=== PATIENT | male | born 1965 | race American Indian/Alaskan Native ===

== ENCOUNTER 2016-11-19 10:36 | Emergency (ER) | payer MEDICAID ==
[~2016-11-19] VITALS: Ht 167.6 cm; Wt 74.0 kg
[~2016-11-19 10:36] MED LIST: ASPI-621 PO; ATOR40TA78 PO; CARV6.252 PO; CIPR7.5D RIGHT EAR; LEVO750T26 PO; LISI-170 PO; NITR0.4T SL; SPIR25TA PO; TICA90TA PO
[2016-11-19] MEDS ORDERED: MORPHINE SULFATE 4 MG/ML, 1ML ONE ×2 (11:52→14:31)
[2016-11-19] MEDS ORDERED: ONDANSETRON 2MG/ML, 2ML ONE (11:52)
[2016-11-19] MEDS ORDERED: ONDANSETRON 2MG/ML, 2ML IVPush ONE (12:00)
[2016-11-19] MEDS ORDERED: SODIUM CHLORIDE FLUSH 10ML SYR IVF ONE (12:00)
[2016-11-19] MEDS: MORPHINE SULFATE 4 MG/ML, 1ML IVPush PRN ×2 (12:03→14:35)
[2016-11-19 12:48] VITALS: BP 188/104
== END 2016-11-19 15:06 | disposition home or self-care (01) ==
LOC: ED 15:00
DX: S82.102A Unspecified fracture of upper end of left tibia, initial encounter for closed fracture (principal); I10 Essential (primary) hypertension; I25.2 Old myocardial infarction; W18.39XA Other fall on same level, initial encounter; Y93.89 Activity, other specified; Y92.89 Other specified places as the place of occurrence of the external cause; Y99.8 Other external cause status; Z87.01 Personal history of pneumonia (recurrent)
CPT/HCPCS: 29505; 73564; 73700; 96374; 96375; 96376; 99284; J2405

== ENCOUNTER 2017-02-12 18:12 | Inpatient (IN) | payer MEDICAID ==
[~2017-02-12] VITALS: Ht 167.6 cm; Wt 60.2 kg
[2017-02-12] MEDS ORDERED: SODIUM CHLORIDE 0.9% 1,000 ML IV ONE (18:44)
[2017-02-12] MEDS ORDERED: HYDROmorphone 1 MG/ML, 1ML IVPush PRN (19:00)
[2017-02-12] MEDS ORDERED: ONDANSETRON 2MG/ML, 2ML IVPush ONE (19:00)
[2017-02-12] MEDS ORDERED: SODIUM CHLORIDE FLUSH 10ML SYR IVF ONE (19:00)
[2017-02-12] MEDS ORDERED: ONDANSETRON 2MG/ML, 2ML ONE (19:01)
[2017-02-12] MEDS ORDERED: LABETALOL 5MG/ML, 20ML ONE (19:02)
[2017-02-12] MEDS ORDERED: HYDROmorphone 1 MG/ML, 1ML ONE (19:02)
[2017-02-12] MEDS: LABETALOL 5MG/ML, 20ML IVPush PRN ×3 (19:09→20:43)
[2017-02-12 19:38] LABS: ASPARTATE AMINO TRANSFERASE 38 U/L (15-37); BLOOD UREA NITROGEN 8 mg/dL (7-18)
[2017-02-12 19:48] LABS: IS PT STATUS REG ER OR PRE ER? YES
[2017-02-12] MEDS ORDERED: OMNIPAQUE 350 MG/ML, 75ML BOTTLE ONE (20:22)
[2017-02-12] MEDS ORDERED: AMPICILLIN/SULBACTAM 3 GM in SODIUM CHLORIDE 0.9% 100 ML IVPB ONE (21:30)
[2017-02-12] MEDS ORDERED: SODIUM CHLORIDE FLUSH 10ML SYR IVF PRN (21:30)
[2017-02-12 22:22] VITALS: BP 195/105
[2017-02-12 23:59] VITALS: BP 174/93
[2017-02-13] VITALS (10 sets, daily range): BP systolic 127–199; BP diastolic 74–108
[2017-02-13] MEDS: SODIUM CHLORIDE 0.9% 1,000 ML IV SCH ×3 (00:21→20:21)
[2017-02-13] MEDS ORDERED: ONDANSETRON 2MG/ML, 2ML IVPush PRN ×2 (00:30→22:00)
[2017-02-13] MEDS ORDERED: morphine SULFATE 10 MG/ML, 1ML IVPush PRN (00:30)
[2017-02-13] MEDS ORDERED: POLYETHYLENE GLYCOL 17 GM PACKET PO PRN (00:30)
[2017-02-13] MEDS ORDERED: BISACODYL 10 MG SUPP PR PRN (00:30)
[2017-02-13] MEDS ORDERED: OXYcodone IR 5MG TABLET PO PRN (00:30)
[2017-02-13] MEDS ORDERED: ACETAMINOPHEN 325 MG TABLET PO PRN (00:30)
[2017-02-13] MEDS ORDERED: POTASSIUM CHLORIDE 40 MEQ in SODIUM CHLORIDE 0.9% 500 ML IV ONE (01:00)
[2017-02-13] MEDS ORDERED: NITROGLYCERIN 0.4 MG BOTTLE (25 TABS) SL PRN (01:00)
[2017-02-13] MEDS: HEPARIN 5,000 UNITS/ML, 1ML SQ SCH ×2 (01:35→08:58)
[2017-02-13] MEDS: ENALAPRILAT 1.25 MG/ML, 2ML IVPush PRN (01:47)
[2017-02-13] MEDS: hydrALAzine 20 MG/ML, 1ML IVPush PRN (03:18)
[2017-02-13] MEDS: AMPICILLIN/SULBACTAM 3 GM in SODIUM CHLORIDE 0.9% 100 ML IV SCH ×3 (04:12→18:31)
[2017-02-13] MEDS: CARVEDILOL 25 MG TABLET PO SCH ×2 (06:12→17:56)
[2017-02-13 06:40] LABS: PATH.CAST-FLAG NOT PRESENT; SPERM-FLAG NOT PRESENT; SRC-FLAG NOT PRESENT; XTAL-FLAG NOT PRESENT; YLC-FLAG NOT PRESENT
[2017-02-13] MEDS: ASPIRIN 81 MG TABLET EC PO SCH (08:58)
[2017-02-13] MEDS: SENNA/DOCUSATE TABLET PO SCH (08:58)
[2017-02-13] MEDS: LISINOPRIL 20 MG TABLET PO SCH ×2 (08:58→20:52)
[2017-02-13] MEDS ORDERED: TICAGRELOR 90 MG TABLET PO SCH (09:00)
[2017-02-13] MEDS ORDERED: CEFAZOLIN 1,000 MG ONE (10:11)
[2017-02-13] MEDS ORDERED: PROPOFOL 10 MG/ML, 20ML ONE (10:11)
[2017-02-13] MEDS ORDERED: SUCCINYLCHOLINE 20 MG/ML, 10ML ONE (10:11)
[2017-02-13] MEDS ORDERED: LIDOCAINE 0.5%-EPI 1:200K, 50ML ONE (18:27)
[2017-02-13] MEDS ORDERED: BUPIVACAINE/PF-EPI 0.5% 1:200K ONE (18:27)
[2017-02-13] MEDS: ATORVASTATIN 40 MG TABLET PO SCH (20:52)
[2017-02-13] MEDS ORDERED: MIDAZOLAM 1 MG/ML, 2ML ONE (21:17)
[2017-02-13] MEDS ORDERED: FENTANYL PF 250 MCG/5ML ONE (21:17)
[2017-02-13] MEDS ORDERED: LIDOCAINE 0.5%-EPI 1:200K, 50ML IM ONE (21:35)
[2017-02-13] MEDS ORDERED: MEPERIDINE/PF 25MG/0.5ML IVPush PRN (22:00)
[2017-02-13] MEDS ORDERED: OXYcodone 5 MG/5 ML ORAL.SOL UDC PO PRN (22:00)
[2017-02-13] MEDS ORDERED: LABETALOL 5MG/ML, 20ML IV PRN (22:00)
[2017-02-13] MEDS ORDERED: KETOROLAC 30 MG/1 ML IM PRN (22:00)
[2017-02-13] MEDS ORDERED: FENTANYL PF 100 MCG/2ML IV PRN (22:00)
[2017-02-13] MEDS ORDERED: HYDROmorphone 1 MG/ML, 1ML ONE (22:03)
[2017-02-13] MEDS ORDERED: FENTANYL PF 100 MCG/2ML ONE (22:03)
[2017-02-13] MEDS ORDERED: KETOROLAC 30 MG/1 ML ONE (22:07)
[2017-02-13] MEDS: HYDROmorphone 1 MG/ML, 1ML IV PRN ×2 (22:24→22:49)
[2017-02-13] MEDS ORDERED: hydrALAzine 20 MG/ML, 1ML ONE (22:29)
[2017-02-14] VITALS (13 sets, daily range): BP systolic 124–192; BP diastolic 71–104
[2017-02-14] MEDS: CARVEDILOL 25 MG TABLET PO SCH ×2 (05:19→16:59)
[2017-02-14] MEDS: AMPICILLIN/SULBACTAM 3 GM in SODIUM CHLORIDE 0.9% 100 ML IV SCH ×4 (05:54→18:07)
[2017-02-14 05:57] LABS: ASPARTATE AMINO TRANSFERASE 26 U/L (15-37); BLOOD UREA NITROGEN 16 mg/dL (7-18)
[2017-02-14] MEDS: CHLORHEXIDINE MOUTHWASH 15 ML UDC MM SCH ×2 (08:45→21:44)
[2017-02-14] MEDS: LISINOPRIL 20 MG TABLET PO SCH ×2 (08:45→21:44)
[2017-02-14] MEDS: SENNA/DOCUSATE TABLET PO SCH (08:46)
[2017-02-14] MEDS: ASPIRIN 81 MG TABLET EC PO SCH (09:00)
[2017-02-14] MEDS: HEPARIN 5,000 UNITS/ML, 1ML SQ SCH (16:58)
[2017-02-14] MEDS ORDERED: MORPHINE SULFATE 4 MG/ML, 1ML ONE (20:03)
[2017-02-14] MEDS: hydrALAzine 20 MG/ML, 1ML IVPush PRN (21:41)
[2017-02-14] MEDS: TICAGRELOR 90 MG TABLET PO SCH (21:44)
[2017-02-14] MEDS: ATORVASTATIN 40 MG TABLET PO SCH (21:44)
[2017-02-14] MEDS: ENALAPRILAT 1.25 MG/ML, 2ML IVPush PRN (22:52)
[2017-02-15] MEDS: HEPARIN 5,000 UNITS/ML, 1ML SQ SCH ×2 (00:18→08:24)
[2017-02-15] MEDS: AMPICILLIN/SULBACTAM 3 GM in SODIUM CHLORIDE 0.9% 100 ML IV SCH ×2 (00:19→06:09)
[2017-02-15] MEDS ORDERED: hydrALAzine 20 MG/ML, 1ML IVPush PRN (00:30)
[2017-02-15 01:49] VITALS: BP 186/86
[2017-02-15 02:22] VITALS: BP_SYST 171; BP_SYST 179; BP_DIAS 79; BP_DIAS 83
[2017-02-15 03:00] VITALS: BP 194/99
[2017-02-15 04:30] VITALS: BP 149/69
[2017-02-15 06:05] VITALS: BP 174/89
[2017-02-15] MEDS: CARVEDILOL 25 MG TABLET PO SCH (06:09)
[2017-02-15] MEDS: ENALAPRILAT 1.25 MG/ML, 2ML IVPush PRN (06:09)
[2017-02-15] MEDS: TICAGRELOR 90 MG TABLET PO SCH (08:24)
[2017-02-15] MEDS: CHLORHEXIDINE MOUTHWASH 15 ML UDC MM SCH (08:24)
[2017-02-15] MEDS: SENNA/DOCUSATE TABLET PO SCH (08:25)
[2017-02-15] MEDS: ASPIRIN 81 MG TABLET EC PO SCH (08:25)
[2017-02-15] MEDS ORDERED: OXYC5TAB3 PO (08:53)
[2017-02-15] MEDS ORDERED: AMOX1TAB64 PO (08:53)
[2017-02-15] MEDS ORDERED: LISI-167 PO (08:53)
[2017-02-15] MEDS ORDERED: HYDR-3343 PO (08:53)
[2017-02-15] MEDS ORDERED: LISINOPRIL 10 MG TABLET PO SCH (09:00)
[2017-02-15 10:33] VITALS: BP 123/69
== END 2017-02-15 11:15 | disposition home or self-care (01) | DRG 305 ==
LOC: ED 21:13 → EDIP 21:14 → ED 21:24 → 4EST 22:23 → DCLOUNGE 02-15 10:55
PROVIDERS: ADMIT Internal Medicine; ATTEND Internal Medicine
PROC: 0CDWXZ0 Extraction of Upper Tooth, Single, External Approach (ICD-10-PCS; 2017-02-13)
PROC: 0C9W0Z1 Drainage of Upper Tooth, Open Approach, Multiple (ICD-10-PCS; principal; 2017-02-13 21:00)
DX: I16.0 Hypertensive urgency (principal); K04.7 Periapical abscess without sinus; E87.6 Hypokalemia; I25.10 Atherosclerotic heart disease of native coronary artery without angina pectoris; I11.0 Hypertensive heart disease with heart failure; I50.9 Heart failure, unspecified; B18.2 Chronic viral hepatitis C; E78.5 Hyperlipidemia, unspecified; F17.210 Nicotine dependence, cigarettes, uncomplicated; Z95.5 Presence of coronary angioplasty implant and graft; Z86.73 Personal history of transient ischemic attack (TIA), and cerebral infarction without residual deficits; Z79.82 Long term (current) use of aspirin; Z79.899 Other long term (current) drug therapy; Z83.3 Family history of diabetes mellitus; Z82.49 Family history of ischemic heart disease and other diseases of the circulatory system; Z71.6 Tobacco abuse counseling
CPT/HCPCS: 36415; 70100; 70450; 70487; 71010; 80053; 81001; 83036; 83605; 83735; 84439; 84443; 84484; 85025; 85610; 85730; 87040; 93005; 96361; 96374; 96375; 96376; J0295; J0690; J1170; J1644; J1885; J2250; J2405; J2704; J3010; J3480; Q9967; J0330; J0360; J2270; J7030; J7040

== ENCOUNTER 2017-11-06 12:47 | Inpatient (IN) | payer MEDICAID ==
[~2017-11-06] VITALS: Ht 167.6 cm; Wt 74.8 kg
[2017-11-06 09:40] VITALS: BP 126/74
[~2017-11-06 12:47] MED LIST changes: +AMOX1TAB64 PO; +HYDR-3343 PO; +LISI-167 PO; +OXYC5TAB3 PO
[2017-11-06 13:58] LABS: BASOPHILS # (AUTO) 0.05 x10^3/uL (0-0.1); BASOPHILS % (AUTO) 1 % (0-1); EOSINOPHILS # (AUTO) 0.12 x10^3/uL (0-0.4); EOSINOPHILS % (AUTO) 2 % (1-7); LYMPHOCYTES # (AUTO) 1.03 x10^3/uL (1-3.4); LYMPHOCYTES % (AUTO) 16 % (22-44); MD NO; MEAN CORPUSCULAR HEMOGLOBIN 28.9 pg (27.5-34.5); MEAN CORPUSCULAR HGB CONC 33.8 g/dL (33.2-36.2); MEAN CORPUSCULAR VOLUME 85.5 fL (81-97); MEAN PLATELET VOLUME 8.7 fL (7.4-10.4); MONOCYTES # (AUTO) 0.55 x10^3/uL (0.2-0.8); MONOCYTES % (AUTO) 9 % (2-9); NEUTROPHILS # (AUTO) 4.67 x10^3/uL (1.8-6.8); NEUTROPHILS % (AUTO) 73 % (42-75); PLATELET COUNT 143 x10^3/uL (130-400); RED BLOOD COUNT 5.44 x10^6/uL (4.38-5.82); RED CELL DISTRIBUTION WIDTH 15.5 % (9.4-14.8)
[2017-11-06] MEDS ORDERED: LABETALOL 5MG/ML, 20ML IVPush ONE (14:00)
[2017-11-06 14:09] LABS: ALANINE AMINOTRANSFERASE 41 U/L (12-78); ALBUMIN 3.2 g/dL (3.4-5.0); ANION GAP 9 mmol/L (5-15); CALCIUM 8.3 mg/dL (8.5-10.1); CHLORIDE 104 mmol/L (98-107); CREATININE 1.32 mg/dL (0.7-1.3)
[2017-11-06 14:13] LABS: ALKALINE PHOSPHATASE 123 U/L (45-117); BILIRUBIN,TOTAL 1.1 mg/dL (0.2-1.0); TOTAL PROTEIN 7.7 g/dL (6.4-8.2); TROPONIN I 0.055 ng/mL (0.000-0.045)
[2017-11-06] MEDS ORDERED: LABETALOL 5MG/ML, 20ML ONE (14:20)
[2017-11-06] MEDS ORDERED: ENALAPRILAT 1.25 MG/ML, 2ML IV ONE (15:00)
[2017-11-06] MEDS ORDERED: ENALAPRILAT 1.25 MG/ML, 2ML ONE (15:21)
[2017-11-06] MEDS ORDERED: LISI-167 PO (15:31)
[2017-11-06] MEDS ORDERED: CARV6.2512 PO (15:32)
[2017-11-06] MEDS ORDERED: hydrALAzine 20 MG/ML, 1ML IVPush PRN ×2 (16:00→20:00)
[2017-11-06] MEDS ORDERED: ACETAMINOPHEN 325 MG TABLET PO PRN (16:00)
[2017-11-06] MEDS ORDERED: LABETALOL 5MG/ML, 20ML IVPush PRN ×2 (16:00→20:00)
[2017-11-06] MEDS ORDERED: POTASSIUM CHLORIDE 20 MEQ TAB.ER.PRT ONE (16:24)
[2017-11-06] MEDS ORDERED: ENOXAPARIN 40 MG/0.4 ML ONE (16:24)
[2017-11-06] MEDS ORDERED: POTASSIUM CHLORIDE 20 MEQ TAB.ER.PRT PO ONE (16:30)
[2017-11-06] MEDS ORDERED: NICOTINE 14MG/24 HR PATCH.TD24 ONE (16:52)
[2017-11-06] MEDS ORDERED: LORATADINE 10 MG TABLET PO PRN (17:00)
[2017-11-06] MEDS ORDERED: NICOTINE 14MG/24 HR PATCH.TD24 TD ONE (17:00)
[2017-11-06] MEDS: ENOXAPARIN 40 MG/0.4 ML SQ SCH (17:03)
[2017-11-06 18:01] VITALS: BP 173/99
[2017-11-06 19:53] VITALS: BP 180/106
[2017-11-06] MEDS: TICAGRELOR 90 MG TABLET PO SCH (20:04)
[2017-11-06] MEDS: CARVEDILOL 6.25 MG TABLET PO SCH (20:05)
[2017-11-06] MEDS: LISINOPRIL 10 MG TABLET PO SCH (20:05)
[2017-11-06] MEDS ORDERED: TICAGRELOR 90 MG TABLET PO SCH (21:00)
[2017-11-06 21:07] VITALS: BP 173/97
[2017-11-07 00:56] VITALS: BP 161/103
[2017-11-07 00:56] LABS: BASOPHILS # (AUTO) 0.03 x10^3/uL (0-0.1); BASOPHILS % (AUTO) 1 % (0-1); EOSINOPHILS # (AUTO) 0.28 x10^3/uL (0-0.4); EOSINOPHILS % (AUTO) 5 % (1-7); LYMPHOCYTES # (AUTO) 1.57 x10^3/uL (1-3.4); LYMPHOCYTES % (AUTO) 28 % (22-44); MD NO; MEAN CORPUSCULAR HEMOGLOBIN 29.3 pg (27.5-34.5); MEAN CORPUSCULAR HGB CONC 33.9 g/dL (33.2-36.2); MEAN CORPUSCULAR VOLUME 86.3 fL (81-97); MEAN PLATELET VOLUME 8.6 fL (7.4-10.4); MONOCYTES # (AUTO) 0.58 x10^3/uL (0.2-0.8); MONOCYTES % (AUTO) 10 % (2-9); NEUTROPHILS # (AUTO) 3.15 x10^3/uL (1.8-6.8); NEUTROPHILS % (AUTO) 56 % (42-75); PLATELET COUNT 132 x10^3/uL (130-400); RED BLOOD COUNT 5.13 x10^6/uL (4.38-5.82); RED CELL DISTRIBUTION WIDTH 15.6 % (9.4-14.8)
[2017-11-07 01:12] LABS: TROPONIN I 0.057 ng/mL (0.000-0.045)
[2017-11-07 01:22] LABS: ALBUMIN 2.8 g/dL (3.4-5.0); ANION GAP 9 mmol/L (5-15); CALCIUM 8.1 mg/dL (8.5-10.1); CHLORIDE 107 mmol/L (98-107)
[2017-11-07 01:31] LABS: ALANINE AMINOTRANSFERASE 35 U/L (12-78); ALKALINE PHOSPHATASE 115 U/L (45-117); BILIRUBIN,TOTAL 0.8 mg/dL (0.2-1.0); CHOL/HDL RATIO 5.7; CHOLESTEROL, TOTAL 160 mg/dL (140-239); CREATININE 1.25 mg/dL (0.7-1.3); HDL CHOL % 18 % (26-37); HDL CHOLESTEROL (DIRECT) 28 mg/dL (40-60); TOTAL PROTEIN 6.8 g/dL (6.4-8.2); TRIGLYCERIDES 112 mg/dL (50-200); VLDL CHOLESTEROL 22 mg/dL (0-25)
[2017-11-07 01:32] LABS: FREE T4 (FREE THYROXINE) 1.22 ng/dL (0.76-1.46); LDL CHOLESTEROL,CALCULATED 110 mg/dL (54-169); LDL/HDL RATIO 3.9 (0.5-3.0); THYROID STIMULATING HORMONE 0.494 mIU/L (0.358-3.740)
[2017-11-07 01:41] LABS: AMPHETAMINE SCREEN, URINE Positive (Negative); BARBITURATE SCREEN, URINE Negative (Negative); BENZODIAZEPINE SCREEN, URINE Negative (Negative); CANNABINOID SCREEN, URINE Positive (Negative); COCAINE SCREEN, URINE Negative (Negative); METHADONE SCREEN, URINE Negative (Negative); OPIATE SCREEN, URINE Negative (Negative)
[2017-11-07] MEDS: ASPIRIN 81 MG TABLET EC PO SCH (05:41)
[2017-11-07 06:42] VITALS: BP 162/109
[2017-11-07] MEDS: LISINOPRIL 10 MG TABLET PO SCH ×2 (08:19→20:06)
[2017-11-07] MEDS: TICAGRELOR 90 MG TABLET PO SCH ×2 (08:19→20:06)
[2017-11-07] MEDS: CARVEDILOL 6.25 MG TABLET PO SCH ×2 (08:19→20:06)
[2017-11-07] MEDS ORDERED: CARVEDILOL 6.25 MG TABLET PO SCH (09:00)
[2017-11-07 09:40] VITALS: BP 126/74
[2017-11-07] MEDS ORDERED: BISACODYL 5 MG EC TABLET PO PRN (14:00)
[2017-11-07 14:49] VITALS: BP 163/97
[2017-11-07] MEDS: ENOXAPARIN 40 MG/0.4 ML SQ SCH (17:24)
[2017-11-07] MEDS: ISOSORBIDE DINITRATE 10 MG TABLET PO SCH ×2 (17:24→20:06)
[2017-11-07 20:00] VITALS: BP 128/77
[2017-11-07 20:04] VITALS: BP 155/81
[2017-11-08 03:14] VITALS: BP 174/92
[2017-11-08 04:03] VITALS: BP 159/71
[2017-11-08 05:21] LABS: CHLORIDE 109 mmol/L (98-107)
[2017-11-08 05:30] LABS: ANION GAP 6 mmol/L (5-15); CALCIUM 8.2 mg/dL (8.5-10.1); CREATININE 1.26 mg/dL (0.7-1.3)
[2017-11-08] MEDS: ASPIRIN 81 MG TABLET EC PO SCH (05:55)
[2017-11-08 07:57] VITALS: BP 170/95
[2017-11-08] MEDS: CARVEDILOL 6.25 MG TABLET PO SCH (08:54)
[2017-11-08] MEDS: LISINOPRIL 10 MG TABLET PO SCH (08:55)
[2017-11-08] MEDS: TICAGRELOR 90 MG TABLET PO SCH (08:55)
[2017-11-08] MEDS: ISOSORBIDE DINITRATE 10 MG TABLET PO SCH (08:55)
[2017-11-08] MEDS ORDERED: ISOS10TA2 PO (11:40)
[2017-11-08] MEDS ORDERED: HYDR-3341 PO (11:40)
[2017-11-08] MEDS ORDERED: ATOR40TA78 PO (11:46)
== END 2017-11-08 13:31 | disposition home or self-care (01) | DRG 304 ==
LOC: ED 14:50 → EDIP 14:51 → ED 14:52 → 4EST 16:21 → DCLOUNGE 11-08 13:19
PROVIDERS: ADMIT Family Medicine; ATTEND Family Medicine
DX: I16.9 Hypertensive crisis, unspecified (principal); N17.0 Acute kidney failure with tubular necrosis; I50.32 Chronic diastolic (congestive) heart failure; I13.0 Hypertensive heart and chronic kidney disease with heart failure and stage 1 through stage 4 chronic kidney disease, or unspecified chronic kidney disease; B19.20 Unspecified viral hepatitis C without hepatic coma; E03.9 Hypothyroidism, unspecified; E78.5 Hyperlipidemia, unspecified; E87.6 Hypokalemia; J44.9 Chronic obstructive pulmonary disease, unspecified; F12.10 Cannabis abuse, uncomplicated; F15.10 Other stimulant abuse, uncomplicated; F17.210 Nicotine dependence, cigarettes, uncomplicated; G47.00 Insomnia, unspecified; I25.10 Atherosclerotic heart disease of native coronary artery without angina pectoris; I25.2 Old myocardial infarction; Z79.82 Long term (current) use of aspirin; Z82.49 Family history of ischemic heart disease and other diseases of the circulatory system; Z86.73 Personal history of transient ischemic attack (TIA), and cerebral infarction without residual deficits; Z95.5 Presence of coronary angioplasty implant and graft; Z71.6 Tobacco abuse counseling; Z89.029 Acquired absence of unspecified finger(s)
CPT/HCPCS: 36415; 70450; 71045; 80048; 80053; 80061; 80307; 83735; 83880; 84439; 84443; 84484; 85025; 93005; 93306; 96374; 96375; J1650; J0360

== ENCOUNTER 2018-11-13 19:24 | Inpatient (IN) | payer MEDICAID ==
[~2018-11-13] VITALS: Ht 167.6 cm; Wt 66.5 kg
[~2018-11-13 19:24] MED LIST changes: -ASPI-621 PO; +ASPI81TA45 PO; +CARV6.2512 PO; +HYDR-3341 PO; +ISOS10TA2 PO
[2018-11-13] MEDS ORDERED: hydrALAzine 20 MG/ML, 1ML IV ONE ×2 (20:00→20:30)
--- NOTE | 2018-11-13 20:00 | NUR ---
FIRST CONTACT WITH PT. PT C/O DIFFICULTY BREATHING/SOB X 3 DAYS WITH COUGH. BILAT FOOT SWELLING AND RASH NOTED . PAIN IN LEFT CHEST STARTED X 3 DAYS AGO. PT HAS HX OF TIA/PNEUMONIA. ALL MONITORS IN PLACE. CALL LIGHT WITHIN REACH. NSR ON CONTINUUM OF CARE MANAGER WITHOUT ECTOPY RATE 90'S AT THIS TIME.
[2018-11-13] MEDS ORDERED: hydrALAzine 20 MG/ML, 1ML ONE (20:05)
[2018-11-13] MEDS ORDERED: MORPHINE SULFATE 4 MG/ML, 1ML ONE ×2 (20:05→20:55)
[2018-11-13] MEDS: MORPHINE SULFATE 4 MG/ML, 1ML IVPush PRN ×2 (20:18→20:57)
--- NOTE | 2018-11-13 20:21 | NUR ---
pt medicated per emar. pt tolerated well.
[2018-11-13] MEDS ORDERED: NITROGLYCERIN SINGLE TAB 0.4 MG SL ONE ×2 (20:24→20:54)
[2018-11-13] MEDS: NITROGLYCERIN SINGLE TAB 0.4 MG SL PRN ×2 (20:25→20:57)
--- NOTE | 2018-11-13 20:29 | NUR ---
pt medicated per emar. pt tolerated well. pt's aox4. resps even and unlabored. family at bedside now.
[2018-11-13 20:30] LABS: BASOPHILS # (AUTO) 0.03 x10^3/uL (0-0.1); BASOPHILS % (AUTO) 0 % (0-1); EOSINOPHILS # (AUTO) 0.47 x10^3/uL (0-0.4); EOSINOPHILS % (AUTO) 6 % (1-7); LYMPHOCYTES # (AUTO) 1.35 x10^3/uL (1-3.4); LYMPHOCYTES % (AUTO) 18 % (22-44); MD NO; MEAN CORPUSCULAR HEMOGLOBIN 27.7 pg (27.5-34.5); MEAN CORPUSCULAR HGB CONC 32.2 g/dL (33.2-36.2); MEAN CORPUSCULAR VOLUME 86.1 fL (81-97); MEAN PLATELET VOLUME 9.1 fL (7.4-10.4); MONOCYTES # (AUTO) 0.54 x10^3/uL (0.2-0.8); MONOCYTES % (AUTO) 7 % (2-9); NEUTROPHILS # (AUTO) 5.34 x10^3/uL (1.8-6.8); NEUTROPHILS % (AUTO) 69 % (42-75); PLATELET COUNT 202 x10^3/uL (130-400); RED BLOOD COUNT 5.26 x10^6/uL (4.38-5.82); RED CELL DISTRIBUTION WIDTH 16.1 % (9.4-14.8)
[2018-11-13 20:35] LABS: INTERNATIONAL NORMALIZED RATIO 1.14 (0.93-1.1); PROTHROMBIN TIME 11.9 Seconds (9.6-11.5)
[2018-11-13 20:36] LABS: ALANINE AMINOTRANSFERASE 31 U/L (12-78); ALBUMIN 3.1 g/dL (3.4-5.0); ANION GAP 5 mmol/L (5-15); CALCIUM 7.9 mg/dL (8.5-10.1); CHLORIDE 114 mmol/L (98-107); CREATININE 1.83 mg/dL (0.7-1.3)
[2018-11-13 20:41] LABS: ALKALINE PHOSPHATASE 132 U/L (45-117); BILIRUBIN,TOTAL 0.6 mg/dL (0.2-1.0); TOTAL PROTEIN 7.5 g/dL (6.4-8.2)
[2018-11-13 20:47] LABS: TROPONIN I 0.727 ng/mL (0.000-0.045)
[2018-11-13] MEDS ORDERED: ASPIRIN 81 MG TABLET CHEW ONE (20:55)
--- NOTE | 2018-11-13 20:57 | NUR ---
2nd nitro given at this time. edmd notified.
[2018-11-13] MEDS ORDERED: ASPIRIN 81 MG TABLET CHEW PO ONE (21:00)
--- NOTE | 2018-11-13 21:37 | NUR ---
pt in ct now.
--- NOTE | 2018-11-13 21:55 | NUR ---
pt back to room from ct. pt's pain level is 7/10 at this time. family at bedside.
[2018-11-13] MEDS ORDERED: OMNIPAQUE 350 MG/ML, 100ML BOTTLE ONE (22:03)
[2018-11-13] MEDS ORDERED: ONDANSETRON 2MG/ML, 2ML IVPush PRN (22:30)
[2018-11-13] MEDS ORDERED: MORPHINE SULFATE 4 MG/ML, 1ML IVPush PRN (22:30)
--- NOTE | 2018-11-13 22:39 | NUR ---
PT RESTING IN [facility]. PT'S AOX4. RESPS EVEN AND UNLABORED. PT STATES FEELING MUCH BETTER AT THIS TIME. ALL MONITORS IN PLACE. CALL LIGHT WITHIN REACH.
--- NOTE | 2018-11-13 23:11 | NUR ---
VERBAL MEDS ORDER RECEIVED FROM HOSPITALIST AT THIS TIME D/T HIGH BP.
[2018-11-13] MEDS ORDERED: FUROSEMIDE 40 MG/4 ML ONE (23:15)
[2018-11-13] MEDS: FUROSEMIDE 40 MG/4 ML IV SCH (23:17)
--- NOTE | 2018-11-13 23:19 | NUR ---
pt medicated per emar. pt tolerated well. pt's aox4. resps even and unlabored.
[2018-11-13] MEDS ORDERED: ACETAMINOPHEN 325 MG TABLET PO PRN (23:30)
[2018-11-13] MEDS ORDERED: LIDODERM 5% PATCH TD PRN (23:30)
[2018-11-13] MEDS ORDERED: LABETALOL 5 MG/ML SYRINGE IVPush PRN (23:30)
[2018-11-13 23:36] LABS: MICROSCOPIC NOT IND
[2018-11-13 23:40] LABS: CULTURE INDICATED? NO
--- NOTE | 2018-11-13 23:45 | NUR ---
PT'S FATHER'S NUMBER [phone]
[2018-11-13 23:52] LABS: AMPHETAMINE SCREEN, URINE Positive (Negative); BARBITURATE SCREEN, URINE Negative (Negative); BENZODIAZEPINE SCREEN, URINE Negative (Negative); CANNABINOID SCREEN, URINE Positive (Negative); COCAINE SCREEN, URINE Negative (Negative); METHADONE SCREEN, URINE Negative (Negative); OPIATE SCREEN, URINE Positive (Negative)
--- NOTE | 2018-11-14 00:16 | NUR ---
TOM RN: REPORT OF PT FROM DEMETRIO RUGGIERO AND ASSUMING CARE OF PT AT THIS TIME.
[2018-11-14] MEDS ORDERED: ENALAPRILAT 1.25 MG/ML, 2ML IVPush PRN (00:30)
[2018-11-14] MEDS ORDERED: LORazepam 1MG TABLET PO PRN (00:30)
--- NOTE | 2018-11-14 00:51 | NUR ---
PT RESTING IN [facility]. PT'S AOX4. RESPS EVEN AND UNLABORED. ALL MONITORS IN PLACE. CALL LIGHT WITHIN REACH. PT'S FATHER AT BEDSIDE NOW.
--- NOTE | 2018-11-14 00:59 | NUR ---
REPORT GIVEN TO CHARLINE ATKINSON. ALL QUESTIONS ANSWERED.
[2018-11-14 01:22] VITALS: BP 190/124
[2018-11-14] MEDS: BISACODYL 10 MG SUPP PR SCH ×2 (01:57→09:25)
[2018-11-14] MEDS: ATORVASTATIN 40 MG TABLET PO SCH ×2 (01:58→20:24)
[2018-11-14] MEDS: hydrALAzine 20 MG/ML, 1ML IVPush PRN ×2 (01:58→12:52)
[2018-11-14] MEDS: HEPARIN 5,000 UNITS/ML, 1ML SQ SCH ×4 (01:59→23:40)
[2018-11-14 02:23] LABS: BASOPHILS # (AUTO) 0.04 x10^3/uL (0-0.1); BASOPHILS % (AUTO) 1 % (0-1); EOSINOPHILS # (AUTO) 0.39 x10^3/uL (0-0.4); EOSINOPHILS % (AUTO) 5 % (1-7); LYMPHOCYTES # (AUTO) 1.24 x10^3/uL (1-3.4); LYMPHOCYTES % (AUTO) 16 % (22-44); MD NO; MEAN CORPUSCULAR HEMOGLOBIN 28.4 pg (27.5-34.5); MEAN CORPUSCULAR HGB CONC 32.9 g/dL (33.2-36.2); MEAN CORPUSCULAR VOLUME 86.4 fL (81-97); MEAN PLATELET VOLUME 8.8 fL (7.4-10.4); MONOCYTES # (AUTO) 0.59 x10^3/uL (0.2-0.8); MONOCYTES % (AUTO) 7 % (2-9); NEUTROPHILS # (AUTO) 5.62 x10^3/uL (1.8-6.8); NEUTROPHILS % (AUTO) 71 % (42-75); PLATELET COUNT 200 x10^3/uL (130-400); RED BLOOD COUNT 5.36 x10^6/uL (4.38-5.82); RED CELL DISTRIBUTION WIDTH 16.1 % (9.4-14.8)
[2018-11-14 02:31] LABS: ANION GAP 6 mmol/L (5-15); CALCIUM 8.4 mg/dL (8.5-10.1); CHLORIDE 109 mmol/L (98-107)
[2018-11-14 02:39] LABS: TROPONIN I 0.679 ng/mL (0.000-0.045)
[2018-11-14 02:44] LABS: CREATININE 1.81 mg/dL (0.7-1.3)
[2018-11-14 02:46] VITALS: BP 168/93
[2018-11-14 07:25] VITALS: BP 167/95
[2018-11-14] MEDS: FUROSEMIDE 40 MG/4 ML IV SCH (07:30)
[2018-11-14 09:00] LABS: TROPONIN I 0.568 ng/mL (0.000-0.045)
[2018-11-14] MEDS: LISINOPRIL 10 MG TABLET PO SCH (09:25)
[2018-11-14] MEDS: TICAGRELOR 90 MG TABLET PO SCH ×2 (09:25→20:24)
[2018-11-14 12:49] VITALS: BP 174/99
[2018-11-14] MEDS: CARVEDILOL 6.25 MG TABLET PO SCH (18:20)
[2018-11-14 20:23] VITALS: BP 135/78
[2018-11-14 21:59] VITALS: BP 143/81
[2018-11-15 00:13] VITALS: BP 151/93
[2018-11-15 05:21] VITALS: BP 158/93
[2018-11-15] MEDS: CARVEDILOL 6.25 MG TABLET PO SCH ×2 (05:22→17:43)
[2018-11-15 05:48] LABS: BASOPHILS # (AUTO) 0.03 x10^3/uL (0-0.1); BASOPHILS % (AUTO) 0 % (0-1); EOSINOPHILS # (AUTO) 0.35 x10^3/uL (0-0.4); EOSINOPHILS % (AUTO) 6 % (1-7); LYMPHOCYTES # (AUTO) 0.95 x10^3/uL (1-3.4); LYMPHOCYTES % (AUTO) 15 % (22-44); MD NO; MEAN CORPUSCULAR HEMOGLOBIN 27.9 pg (27.5-34.5); MEAN CORPUSCULAR HGB CONC 32.4 g/dL (33.2-36.2); MEAN CORPUSCULAR VOLUME 86.1 fL (81-97); MEAN PLATELET VOLUME 8.7 fL (7.4-10.4); MONOCYTES # (AUTO) 0.58 x10^3/uL (0.2-0.8); MONOCYTES % (AUTO) 9 % (2-9); NEUTROPHILS # (AUTO) 4.42 x10^3/uL (1.8-6.8); NEUTROPHILS % (AUTO) 70 % (42-75); PLATELET COUNT 169 x10^3/uL (130-400); RED BLOOD COUNT 4.94 x10^6/uL (4.38-5.82); RED CELL DISTRIBUTION WIDTH 15.9 % (9.4-14.8)
[2018-11-15 05:51] LABS: CHLORIDE 108 mmol/L (98-107)
[2018-11-15 06:10] LABS: ALANINE AMINOTRANSFERASE 25 U/L (12-78); ALBUMIN 2.6 g/dL (3.4-5.0); ALKALINE PHOSPHATASE 93 U/L (45-117); ANION GAP 9 mmol/L (5-15); BILIRUBIN,TOTAL 1.1 mg/dL (0.2-1.0); CALCIUM 7.8 mg/dL (8.5-10.1); CREATININE 1.61 mg/dL (0.7-1.3); TOTAL PROTEIN 6.3 g/dL (6.4-8.2)
[2018-11-15 08:14] VITALS: BP 177/112
[2018-11-15] MEDS: HEPARIN 5,000 UNITS/ML, 1ML SQ SCH ×3 (08:32→23:26)
[2018-11-15] MEDS: LISINOPRIL 10 MG TABLET PO SCH (08:32)
[2018-11-15] MEDS: TICAGRELOR 90 MG TABLET PO SCH ×2 (08:32→20:51)
[2018-11-15] MEDS: BISACODYL 10 MG SUPP PR SCH (09:00)
[2018-11-15 09:32] VITALS: BP 150/80
[2018-11-15] MEDS ORDERED: POTASSIUM CHLORIDE 20 MEQ TAB.ER.PRT PO ONE (11:30)
[2018-11-15 14:54] VITALS: BP 153/78
[2018-11-15 20:34] VITALS: BP 174/92
[2018-11-15] MEDS: ATORVASTATIN 40 MG TABLET PO SCH (20:52)
[2018-11-16 01:33] VITALS: BP 166/98
[2018-11-16 05:44] LABS: BASOPHILS # (AUTO) 0.06 x10^3/uL (0-0.1); BASOPHILS % (AUTO) 1 % (0-1); EOSINOPHILS # (AUTO) 0.37 x10^3/uL (0-0.4); EOSINOPHILS % (AUTO) 6 % (1-7); LYMPHOCYTES # (AUTO) 0.96 x10^3/uL (1-3.4); LYMPHOCYTES % (AUTO) 17 % (22-44); MD NO; MEAN CORPUSCULAR HEMOGLOBIN 28.6 pg (27.5-34.5); MEAN CORPUSCULAR HGB CONC 33.3 g/dL (33.2-36.2); MEAN CORPUSCULAR VOLUME 85.8 fL (81-97); MEAN PLATELET VOLUME 8.7 fL (7.4-10.4); MONOCYTES # (AUTO) 0.57 x10^3/uL (0.2-0.8); MONOCYTES % (AUTO) 10 % (2-9); NEUTROPHILS # (AUTO) 3.84 x10^3/uL (1.8-6.8); NEUTROPHILS % (AUTO) 66 % (42-75); PLATELET COUNT 166 x10^3/uL (130-400); RED BLOOD COUNT 5.05 x10^6/uL (4.38-5.82); RED CELL DISTRIBUTION WIDTH 15.8 % (9.4-14.8)
[2018-11-16 05:59] LABS: CHLORIDE 110 mmol/L (98-107)
[2018-11-16 06:13] LABS: ALANINE AMINOTRANSFERASE 29 U/L (12-78); ALBUMIN 2.6 g/dL (3.4-5.0); ALKALINE PHOSPHATASE 103 U/L (45-117); ANION GAP 7 mmol/L (5-15); BILIRUBIN,TOTAL 0.6 mg/dL (0.2-1.0); CREATININE 1.36 mg/dL (0.7-1.3); TOTAL PROTEIN 6.4 g/dL (6.4-8.2)
[2018-11-16 06:25] VITALS: BP 177/106
[2018-11-16] MEDS: HEPARIN 5,000 UNITS/ML, 1ML SQ SCH ×3 (06:30→21:04)
[2018-11-16] MEDS: CARVEDILOL 6.25 MG TABLET PO SCH ×2 (06:30→17:13)
[2018-11-16] MEDS: hydrALAzine 20 MG/ML, 1ML IVPush PRN ×2 (06:38→13:39)
[2018-11-16] MEDS: TICAGRELOR 90 MG TABLET PO SCH ×2 (08:41→20:08)
[2018-11-16] MEDS: BISACODYL 10 MG SUPP PR SCH (08:41)
[2018-11-16] MEDS ORDERED: LISINOPRIL 10 MG TABLET PO SCH (09:00)
[2018-11-16 10:47] LABS: TROPONIN I 0.168 ng/mL (0.000-0.045)
[2018-11-16 13:45] VITALS: BP 176/100
[2018-11-16] MEDS ORDERED: LISINOPRIL 10 MG TABLET PO ONE (14:00)
[2018-11-16 20:06] VITALS: BP 145/80
[2018-11-16] MEDS: ATORVASTATIN 40 MG TABLET PO SCH (20:08)
[2018-11-17 01:19] VITALS: BP 167/88
[2018-11-17 05:32] VITALS: BP 157/88
[2018-11-17] MEDS: CARVEDILOL 6.25 MG TABLET PO SCH (05:33)
[2018-11-17] MEDS: HEPARIN 5,000 UNITS/ML, 1ML SQ SCH (05:33)
[2018-11-17 07:05] VITALS: BP 152/90
[2018-11-17] MEDS ORDERED: LISI-167 PO (07:59)
[2018-11-17] MEDS: TICAGRELOR 90 MG TABLET PO SCH (08:47)
[2018-11-17] MEDS: BISACODYL 10 MG SUPP PR SCH (08:47)
[2018-11-17] MEDS ORDERED: LISINOPRIL 20 MG TABLET PO SCH (09:00)
[2018-11-17] MEDS ORDERED: LISINOPRIL 10 MG TABLET PO SCH (09:00)
[2018-11-17 10:28] VITALS: BP 157/85
== END 2018-11-17 12:24 | disposition home or self-care (01) | DRG 917 ==
LOC: ED 20:25 → EDIP 22:24 → 5SO 11-14 01:17 → DCLOUNGE 11-17 12:15
PROVIDERS: ADMIT Family Medicine; ATTEND Family Medicine
DX: T43.621A Poisoning by amphetamines, accidental (unintentional), initial encounter (principal); I21.4 Non-ST elevation (NSTEMI) myocardial infarction; J96.20 Acute and chronic respiratory failure, unspecified whether with hypoxia or hypercapnia; J18.9 Pneumonia, unspecified organism; I50.43 Acute on chronic combined systolic (congestive) and diastolic (congestive) heart failure; I25.110 Atherosclerotic heart disease of native coronary artery with unstable angina pectoris; N17.9 Acute kidney failure, unspecified; B18.2 Chronic viral hepatitis C; E78.5 Hyperlipidemia, unspecified; F12.90 Cannabis use, unspecified, uncomplicated; F15.10 Other stimulant abuse, uncomplicated; I11.0 Hypertensive heart disease with heart failure; I16.0 Hypertensive urgency; I25.2 Old myocardial infarction; K59.00 Constipation, unspecified; Z82.49 Family history of ischemic heart disease and other diseases of the circulatory system; Z86.73 Personal history of transient ischemic attack (TIA), and cerebral infarction without residual deficits; Z95.5 Presence of coronary angioplasty implant and graft; Y92.89 Other specified places as the place of occurrence of the external cause
CPT/HCPCS: 36415; 71045; 71275; 74174; 80048; 80053; 80307; 81003; 83605; 83690; 83735; 83880; 84443; 84484; 85025; 85610; 85730; 87040; 93005; 96374; 96375; 96376; G0378; J1644; J1940; Q9967; J0360

== ENCOUNTER 2019-02-02 16:20 | Inpatient (IN) | payer MEDICAID ==
[~2019-02-02] VITALS: Ht 167.6 cm; Wt 66.3 kg
[~2019-02-02 16:20] MED LIST changes: -NITR0.4T SL; +NITR0.4T41 SL
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
[2019-02-02] MEDS ORDERED: LABETALOL 5MG/ML, 20ML ONE (16:50)
[2019-02-02] MEDS ORDERED: NITROGLYCERIN OINT 2%, 1GM TP ONE ×4 (16:50→19:30)
--- NOTE | 2019-02-02 16:57 | NUR ---
Report from Tamika ATKINSON. Pt resting in bed with eyes closed, resp even and unlabored. Pt appears drowsy but arousable to his name being called. Pt rates CP 3/10 currently. Multiple family members at bedside for support.
[2019-02-02] MEDS ORDERED: SODIUM CHLORIDE FLUSH 10ML SYR IVF ONE (17:00)
[2019-02-02] MEDS ORDERED: PLEASE ENTER HEIGHT AND WEIGHT MC SCH (17:00)
[2019-02-02] MEDS ORDERED: LABETALOL 5MG/ML, 20ML IVPush ONE (17:00)
[2019-02-02 17:10] LABS: BASOPHILS # (AUTO) 0.06 x10^3/uL (0-0.1); BASOPHILS % (AUTO) 1 % (0-1); EOSINOPHILS # (AUTO) 0.35 x10^3/uL (0-0.4); EOSINOPHILS % (AUTO) 4 % (1-7); LYMPHOCYTES # (AUTO) 1.59 x10^3/uL (1-3.4); LYMPHOCYTES % (AUTO) 18 % (22-44); MD NO; MEAN CORPUSCULAR HEMOGLOBIN 28.8 pg (27.5-34.5); MEAN CORPUSCULAR VOLUME 87.1 fL (81-97); MEAN PLATELET VOLUME 8.9 fL (7.4-10.4); MONOCYTES # (AUTO) 0.64 x10^3/uL (0.2-0.8); MONOCYTES % (AUTO) 7 % (2-9); NEUTROPHILS # (AUTO) 6.03 x10^3/uL (1.8-6.8); NEUTROPHILS % (AUTO) 69 % (42-75); PLATELET COUNT 156 x10^3/uL (130-400); RED BLOOD COUNT 5.48 x10^6/uL (4.38-5.82); RED CELL DISTRIBUTION WIDTH 18.2 % (9.4-14.8)
[2019-02-02 17:18] LABS: ALBUMIN 3.6 g/dL (3.4-5.0); ANION GAP 9 mmol/L (5-15); CALCIUM 8.5 mg/dL (8.5-10.1); CHLORIDE 105 mmol/L (98-107); CREATININE 1.26 mg/dL (0.7-1.3)
[2019-02-02 17:22] LABS: TROPONIN I 0.025 ng/mL (0.000-0.045)
[2019-02-02] MEDS ORDERED: MORPHINE SULFATE 4 MG/ML, 1ML ONE (17:35)
--- NOTE | 2019-02-02 17:38 | NUR ---
Pt c/o sudden onset severe L sided CP 10. STAT EKG completed by this RN, Dr. Bonilla notified of this and entered room to evaluate pt. Orders recieved for 4mg Morphine IVP. Pt medicated per order, reports CP 3/10 after meds.
[2019-02-02] MEDS ORDERED: NITROGLYCERIN/D5W PMX 250 ML IV SCH (17:41)
[2019-02-02] MEDS ORDERED: NITROGLYCERIN/D5W PMX 250 ML ONE (17:43)
--- NOTE | 2019-02-02 17:47 | NUR ---
Nitro gtt initiated per order. Pt resting in bed, appears pale, resp shallow. CT contacted to advise them that pt is ready for scan per Dr. Bonilla.
--- NOTE | 2019-02-02 18:01 | NUR ---
REPORT FROM DEMETRIO GAITAN. PT IN BED 18. TO BE MOVED TO TRAUMA [address]ED AND AWARE OF NEED FOR STAT CTA. CT WILL CALL WHEN READY.
[2019-02-02] MEDS ORDERED: OMNIPAQUE 350 MG/ML, 100ML BOTTLE ONE (18:26)
[2019-02-02] MEDS ORDERED: MORPHINE SULFATE 4 MG/ML, 1ML IVPush PRN (18:30)
--- NOTE | 2019-02-02 18:40 | NUR ---
Per Dr. Bonilla maintain SBP 140 on nitro drip, titrated per MD orders.
--- NOTE | 2019-02-02 18:53 | NUR ---
SBAR REPORT TO ROLLY ATKINSON.
--- NOTE | 2019-02-02 19:00 | NUR ---
PT SWITCHED FROM NITRO DRIP TO NITRO PASTE. PT MOSTLY SLEEPING BUT FOLLOWS COMMANDS.
--- NOTE | 2019-02-02 19:02 | NUR ---
TP SPOKE TO CARDS SENIOR PROCESS ANALYST AND THEY STATE THEY WILL ASSIGN THE BED IN "5 MINUTES"
--- NOTE | 2019-02-02 19:36 | NUR ---
ANOTHER REQUEST SENT TO THE [facility] SUP REQUESTING BED.
[2019-02-02 20:05] VITALS: BP 128/78
[2019-02-02 20:30] VITALS: BP 138/89
[2019-02-02 21:53] LABS: AMPHETAMINE SCREEN, URINE Positive (Negative); BARBITURATE SCREEN, URINE Negative (Negative); BENZODIAZEPINE SCREEN, URINE Negative (Negative); CANNABINOID SCREEN, URINE Positive (Negative); COCAINE SCREEN, URINE Negative (Negative); METHADONE SCREEN, URINE Negative (Negative); OPIATE SCREEN, URINE Positive (Negative)
[2019-02-02] MEDS ORDERED: GABAPENTIN 300 MG CAPSULE PO PRN (22:30)
[2019-02-02] MEDS ORDERED: ONDANSETRON 2MG/ML, 2ML IVPush PRN (22:30)
[2019-02-02] MEDS ORDERED: ENOXAPARIN 40 MG/0.4 ML SQ SCH (22:30)
[2019-02-02] MEDS: NITROGLYCERIN OINT 2%, 1GM TP SCH (22:30)
[2019-02-02] MEDS ORDERED: ACETAMINOPHEN 325 MG TABLET PO PRN (22:30)
[2019-02-02] MEDS ORDERED: morphine SULFATE 10 MG/ML, 1ML IVPush PRN (22:30)
[2019-02-02] MEDS ORDERED: ENALAPRILAT 1.25 MG/ML, 2ML IVPush PRN (22:30)
[2019-02-02] MEDS ORDERED: POTASSIUM CHLORIDE 20 MEQ TAB.ER.PRT PO ONE (22:30)
[2019-02-02] MEDS: ISOSORBIDE DINITRATE 10 MG TABLET PO SCH (23:07)
[2019-02-02 23:30] LABS: ALANINE AMINOTRANSFERASE 56 U/L (12-78); ALBUMIN 2.9 g/dL (3.4-5.0); BILIRUBIN, DIRECT 0.3 mg/dL (0.1-0.2)
[2019-02-02 23:33] LABS: ALKALINE PHOSPHATASE 148 U/L (45-117); BILIRUBIN,INDIRECT 0.6 mg/dL (0.0-2.0); BILIRUBIN,TOTAL 0.9 mg/dL (0.2-1.0); TOTAL PROTEIN 6.9 g/dL (6.4-8.2); TROPONIN I 0.053 ng/mL (0.000-0.045)
[2019-02-02 23:39] LABS: THYROID STIMULATING HORMONE 0.312 mIU/L (0.358-3.740)
[2019-02-03 01:52] VITALS: BP 138/73
[2019-02-03] MEDS: NITROGLYCERIN OINT 2%, 1GM TP SCH ×2 (04:30→10:39)
[2019-02-03 05:03] LABS: ANION GAP 6 mmol/L (5-15); CALCIUM 8.2 mg/dL (8.5-10.1); CHLORIDE 109 mmol/L (98-107); CREATININE 1.31 mg/dL (0.7-1.3)
[2019-02-03 05:08] LABS: CHOLESTEROL, TOTAL 149 mg/dL (140-239); HDL CHOL % 25 % (26-37); HDL CHOLESTEROL (DIRECT) 37 mg/dL (40-60); LDL CHOLESTEROL,CALCULATED 87 mg/dL (54-169); LDL/HDL RATIO 2.4 (0.5-3.0); TRIGLYCERIDES 127 mg/dL (50-200); TROPONIN I 0.044 ng/mL (0.000-0.045); VLDL CHOLESTEROL 25 mg/dL (0-25)
[2019-02-03 07:41] VITALS: BP 134/68
[2019-02-03] MEDS ORDERED: LISINOPRIL 10 MG TABLET PO SCH (09:00)
[2019-02-03] MEDS ORDERED: TICAGRELOR 90 MG TABLET PO SCH (09:00)
[2019-02-03] MEDS ORDERED: ASPIRIN 81 MG TABLET EC PO SCH (09:00)
[2019-02-03] MEDS ORDERED: CARVEDILOL 6.25 MG TABLET PO SCH (09:00)
[2019-02-03] MEDS: ISOSORBIDE DINITRATE 10 MG TABLET PO SCH (09:39)
[2019-02-03 13:03] VITALS: BP 152/79
[2019-02-03] MEDS ORDERED: GABA300C10 PO (13:03)
[2019-02-03] MEDS ORDERED: ATORVASTATIN 40 MG TABLET PO SCH (21:00)
== END 2019-02-03 14:18 | disposition home or self-care (01) | DRG 305 ==
LOC: ED 19:03 → EDIP 19:25 → 5SO 20:05
PROVIDERS: ADMIT Family Medicine; ATTEND Internal Medicine
DX: I16.0 Hypertensive urgency (principal); I42.9 Cardiomyopathy, unspecified; I50.42 Chronic combined systolic (congestive) and diastolic (congestive) heart failure; I11.0 Hypertensive heart disease with heart failure; B18.2 Chronic viral hepatitis C; E78.5 Hyperlipidemia, unspecified; F12.90 Cannabis use, unspecified, uncomplicated; F15.10 Other stimulant abuse, uncomplicated; F17.210 Nicotine dependence, cigarettes, uncomplicated; G47.30 Sleep apnea, unspecified; I25.10 Atherosclerotic heart disease of native coronary artery without angina pectoris; I25.2 Old myocardial infarction; Z82.49 Family history of ischemic heart disease and other diseases of the circulatory system; Z91.19 Patient's noncompliance with other medical treatment and regimen; Z95.5 Presence of coronary angioplasty implant and graft
CPT/HCPCS: 36415; 71045; 71275; 80048; 80061; 80076; 80307; 82040; 83690; 83880; 84439; 84443; 84484; 85025; 86803; 87340; 87521; 87806; 93005; 96374; 96375; 99291; G0378; J1650; Q9967; G0475; J2270

== ENCOUNTER 2019-06-22 20:42 | Inpatient (IN) | payer OTHER ==
[~2019-06-22] VITALS: Ht 167.6 cm; Wt 64.6 kg
[~2019-06-22 20:42] MED LIST changes: +GABA300C10 PO
--- NOTE | 2019-06-22 21:13 | NUR ---
PT COMES IN FOR "LUNG PAIN." IN HIS LEFT LUNG. PT REPORTS RECENT PNA BUT RESOLVED AFTER ABX. PT REPORTS NONRADIATING CP STARTING YESTERDAY, DENIES RECENT TRAUMA. PT CONNECTED TO ALL MONITORING, MD AT BEDSIDE TO ASSESS PT. CALL LIGHT IN REACH.
[2019-06-22] MEDS ORDERED: ASPIRIN 325 MG TABLET EC ONE (21:21)
[2019-06-22] MEDS ORDERED: MORPHINE SULFATE 4 MG/ML, 1ML ONE (21:22)
[2019-06-22 21:30] LABS: BASOPHILS # (AUTO) 0.05 x10^3/uL (0-0.1); BASOPHILS % (AUTO) 1 % (0-1); EOSINOPHILS # (AUTO) 0.27 x10^3/uL (0-0.4); EOSINOPHILS % (AUTO) 3 % (1-7); LYMPHOCYTES # (AUTO) 1.33 x10^3/uL (1-3.4); LYMPHOCYTES % (AUTO) 16 % (22-44); MD NO; MEAN CORPUSCULAR HEMOGLOBIN 27.9 pg (27.5-34.5); MEAN CORPUSCULAR HGB CONC 32.2 g/dL (33.2-36.2); MEAN CORPUSCULAR VOLUME 86.6 fL (81-97); MEAN PLATELET VOLUME 8.6 fL (7.4-10.4); MONOCYTES # (AUTO) 0.49 x10^3/uL (0.2-0.8); MONOCYTES % (AUTO) 6 % (2-9); NEUTROPHILS # (AUTO) 6.04 x10^3/uL (1.8-6.8); NEUTROPHILS % (AUTO) 74 % (42-75); PLATELET COUNT 182 x10^3/uL (130-400); RED BLOOD COUNT 4.66 x10^6/uL (4.38-5.82)
[2019-06-22] MEDS ORDERED: ASPIRIN 325 MG TABLET PO ONE (21:30)
[2019-06-22] MEDS: MORPHINE SULFATE 4 MG/ML, 1ML IVPush PRN (21:30)
[2019-06-22] MEDS ORDERED: SODIUM CHLORIDE FLUSH 10ML SYR IVF ONE (21:30)
--- NOTE | 2019-06-22 21:30 | NUR ---
PT MEDICATED PER SEP. LAB AT BEDSIDE FOR CULTURES AT THIS TIME
[2019-06-22 21:38] LABS: ALANINE AMINOTRANSFERASE 41 U/L (12-78); ALBUMIN 2.6 g/dL (3.4-5.0); ANION GAP 6 mmol/L (5-15); CALCIUM 7.9 mg/dL (8.5-10.1); CHLORIDE 107 mmol/L (98-107); CREATININE 1.47 mg/dL (0.7-1.3)
[2019-06-22 21:42] LABS: ALKALINE PHOSPHATASE 233 U/L (45-117); TOTAL PROTEIN 8.3 g/dL (6.4-8.2); TROPONIN I 0.041 ng/mL (0.000-0.045)
--- NOTE | 2019-06-22 22:26 | NUR ---
PT RESTING ON GURNEY EYES CLOSED. CALL LIGHT WITHIN REACH.
[2019-06-22] MEDS ORDERED: FUROSEMIDE 40 MG/4 ML IV ONE (23:00)
[2019-06-22] MEDS ORDERED: POTASSIUM CHLORIDE 20 MEQ TAB.ER.PRT PO ONE (23:00)
[2019-06-22] MEDS ORDERED: FUROSEMIDE 40 MG/4 ML ONE (23:07)
[2019-06-22] MEDS ORDERED: POTASSIUM CHLORIDE 20 MEQ TAB.ER.PRT ONE (23:07)
--- NOTE | 2019-06-22 23:12 | NUR ---
PT MEDICATED PER MAR. CALL LIGHT WITHIN REACH. AWAITING ROOM ASSIGNMENT UPSTAIRS AT THIS TIME
[2019-06-22] MEDS ORDERED: ATOR-2 PO (23:55)
[2019-06-22] MEDS ORDERED: CARV12.52 PO (23:55)
[2019-06-22] MEDS ORDERED: CLON0.2T PO (23:55)
[2019-06-22] MEDS ORDERED: AMLODIPINE PO (23:57)
[2019-06-23] MEDS ORDERED: ONDANSETRON ODT 4 MG PO PRN
[2019-06-23] MEDS ORDERED: DOCUSATE 100 MG CAPSULE PO PRN
[2019-06-23] MEDS ORDERED: hydrALAzine 20 MG/ML, 1ML IVPush PRN
[2019-06-23] MEDS ORDERED: POLYETHYLENE GLYCOL 17 GM PACKET PO PRN
[2019-06-23] MEDS ORDERED: BISACODYL 10 MG SUPP PR PRN
[2019-06-23] MEDS ORDERED: OXYcodone IR 5MG TABLET PO PRN
[2019-06-23] MEDS ORDERED: PROMETHAZINE 25 MG/ML, 1ML IM PRN
[2019-06-23] MEDS ORDERED: ATORVASTATIN 80 MG TABLET PO SCH
[2019-06-23] MEDS ORDERED: ONDANSETRON 2MG/ML, 2ML IVPush PRN
[2019-06-23] MEDS ORDERED: NITROGLYCERIN 0.4 MG BOTTLE (25 TABS) SL PRN
[2019-06-23 00:16] LABS: CULTURE INDICATED? NO; MICROSCOPIC AUTO
[2019-06-23 00:24] LABS: FREE T4 (FREE THYROXINE) 1.16 ng/dL (0.76-1.46)
[2019-06-23] MEDS ORDERED: POTASSIUM CHLORIDE 20 MEQ TAB.ER.PRT PO ONE (01:30)
[2019-06-23 01:35] VITALS: BP 178/131
[2019-06-23] MEDS: TICAGRELOR 90 MG TABLET PO SCH ×3 (01:36→21:03)
[2019-06-23] MEDS: CARVEDILOL 12.5 MG TABLET PO SCH ×3 (01:36→21:04)
[2019-06-23] MEDS: MORPHINE SULFATE 4 MG/ML, 1ML IVPush PRN ×2 (01:39→01:43)
[2019-06-23] MEDS: ENOXAPARIN 40 MG/0.4 ML SQ SCH (01:44)
[2019-06-23] MEDS: ACETAMINOPHEN 325 MG TABLET PO PRN ×2 (01:44→17:30)
[2019-06-23 02:30] VITALS: BP 207/155
[2019-06-23 02:47] LABS: BASOPHILS # (AUTO) 0.06 x10^3/uL (0-0.1); BASOPHILS % (AUTO) 1 % (0-1); EOSINOPHILS # (AUTO) 0.39 x10^3/uL (0-0.4); EOSINOPHILS % (AUTO) 5 % (1-7); LYMPHOCYTES # (AUTO) 1.35 x10^3/uL (1-3.4); LYMPHOCYTES % (AUTO) 17 % (22-44); MD NO; MEAN CORPUSCULAR HGB CONC 32.1 g/dL (33.2-36.2); MEAN CORPUSCULAR VOLUME 87.4 fL (81-97); MEAN PLATELET VOLUME 8.8 fL (7.4-10.4); MONOCYTES # (AUTO) 0.61 x10^3/uL (0.2-0.8); MONOCYTES % (AUTO) 7 % (2-9); NEUTROPHILS # (AUTO) 5.76 x10^3/uL (1.8-6.8); NEUTROPHILS % (AUTO) 71 % (42-75); PLATELET COUNT 193 x10^3/uL (130-400); RED BLOOD COUNT 4.62 x10^6/uL (4.38-5.82); RED CELL DISTRIBUTION WIDTH 19.5 % (9.4-14.8)
[2019-06-23 02:58] LABS: CHLORIDE 108 mmol/L (98-107)
[2019-06-23 03:00] VITALS: BP 162/112
[2019-06-23 03:09] LABS: ALANINE AMINOTRANSFERASE 39 U/L (12-78); ALBUMIN 2.5 g/dL (3.4-5.0); ALKALINE PHOSPHATASE 225 U/L (45-117); BILIRUBIN,TOTAL 1.1 mg/dL (0.2-1.0); CALCIUM 7.7 mg/dL (8.5-10.1); CHOL/HDL RATIO 4.2; CHOLESTEROL, TOTAL 161 mg/dL (140-239); CREATININE 1.34 mg/dL (0.7-1.3); HDL CHOL % 24 % (26-37); HDL CHOLESTEROL (DIRECT) 38 mg/dL (40-60); LDL CHOLESTEROL,CALCULATED 106 mg/dL (54-169); LDL/HDL RATIO 2.8 (0.5-3.0); TOTAL PROTEIN 8.2 g/dL (6.4-8.2); TRIGLYCERIDES 84 mg/dL (50-200); TROPONIN I 0.051 ng/mL (0.000-0.045); VLDL CHOLESTEROL 17 mg/dL (0-25)
[2019-06-23 03:11] LABS: ANION GAP 9 mmol/L (5-15)
[2019-06-23] MEDS ORDERED: MAGNESIUM SULFATE PMX 2GM/50ML 50 ML IV ONE (05:00)
[2019-06-23 07:12] VITALS: BP 135/80
[2019-06-23] MEDS: POTASSIUM CHLORIDE 20 MEQ TAB.ER.PRT PO SCH ×2 (09:16→17:27)
[2019-06-23] MEDS: ASPIRIN 81 MG TABLET EC PO SCH (09:16)
[2019-06-23] MEDS: AMLODIPINE 10 MG TAB PO SCH (09:16)
[2019-06-23] MEDS: FUROSEMIDE 20 MG/2 ML IV SCH ×2 (09:17→17:27)
[2019-06-23 13:09] VITALS: BP 124/77
[2019-06-23 18:12] LABS: TROPONIN I 0.019 ng/mL (0.000-0.045)
[2019-06-23 19:33] VITALS: BP 150/82
[2019-06-23] MEDS: ATORVASTATIN 40 MG TABLET PO SCH (21:03)
[2019-06-23] MEDS: NICOTINE 14MG/24 HR PATCH.TD24 TD SCH ×2 (21:04)
[2019-06-23 21:32] LABS: AMPHETAMINE SCREEN, URINE Positive (Negative); BARBITURATE SCREEN, URINE Negative (Negative); BENZODIAZEPINE SCREEN, URINE Negative (Negative); CANNABINOID SCREEN, URINE Positive (Negative); COCAINE SCREEN, URINE Negative (Negative); METHADONE SCREEN, URINE Negative (Negative); OPIATE SCREEN, URINE Positive (Negative)
[2019-06-24 01:43] VITALS: BP 132/88
[2019-06-24] MEDS: ENOXAPARIN 40 MG/0.4 ML SQ SCH (01:55)
[2019-06-24 06:42] VITALS: BP 161/96
[2019-06-24] MEDS: CARVEDILOL 12.5 MG TABLET PO SCH ×2 (08:01→20:50)
[2019-06-24] MEDS: FUROSEMIDE 20 MG/2 ML IV SCH (08:02)
[2019-06-24] MEDS: AMLODIPINE 10 MG TAB PO SCH (08:02)
[2019-06-24] MEDS: POTASSIUM CHLORIDE 20 MEQ TAB.ER.PRT PO SCH ×2 (08:02→17:38)
[2019-06-24] MEDS: ASPIRIN 81 MG TABLET EC PO SCH (08:02)
[2019-06-24] MEDS: TICAGRELOR 90 MG TABLET PO SCH (08:04)
[2019-06-24 08:33] LABS: BASOPHILS # (AUTO) 0.03 x10^3/uL (0-0.1); BASOPHILS % (AUTO) 1 % (0-1); EOSINOPHILS # (AUTO) 0.16 x10^3/uL (0-0.4); EOSINOPHILS % (AUTO) 3 % (1-7); LYMPHOCYTES # (AUTO) 0.59 x10^3/uL (1-3.4); LYMPHOCYTES % (AUTO) 11 % (22-44); MD NO; MEAN CORPUSCULAR HEMOGLOBIN 27.8 pg (27.5-34.5); MEAN CORPUSCULAR HGB CONC 32.3 g/dL (33.2-36.2); MEAN CORPUSCULAR VOLUME 85.9 fL (81-97); MEAN PLATELET VOLUME 8.7 fL (7.4-10.4); MONOCYTES # (AUTO) 0.44 x10^3/uL (0.2-0.8); MONOCYTES % (AUTO) 8 % (2-9); NEUTROPHILS # (AUTO) 4.29 x10^3/uL (1.8-6.8); NEUTROPHILS % (AUTO) 78 % (42-75); PLATELET COUNT 153 x10^3/uL (130-400); RED BLOOD COUNT 4.38 x10^6/uL (4.38-5.82); RED CELL DISTRIBUTION WIDTH 19.5 % (9.4-14.8)
[2019-06-24 08:39] LABS: CALCIUM 7.7 mg/dL (8.5-10.1); CHLORIDE 110 mmol/L (98-107)
[2019-06-24 08:43] LABS: ANION GAP 5 mmol/L (5-15); CREATININE 1.24 mg/dL (0.7-1.3)
[2019-06-24] MEDS ORDERED: FLU VAC QS 19-20(4YR UP)CEL/PF 0.5 ML IM-VACC ONE (11:00)
[2019-06-24 13:12] VITALS: BP 137/82
[2019-06-24 19:28] VITALS: BP 137/78
[2019-06-24] MEDS: ATORVASTATIN 40 MG TABLET PO SCH (20:50)
[2019-06-25] MEDS: NICOTINE 14MG/24 HR PATCH.TD24 TD SCH
[2019-06-25 01:18] VITALS: BP 145/79
[2019-06-25] MEDS: ENOXAPARIN 40 MG/0.4 ML SQ SCH (02:13)
[2019-06-25 05:26] LABS: CALCIUM 8.1 mg/dL (8.5-10.1); CHLORIDE 111 mmol/L (98-107)
[2019-06-25 05:29] LABS: BASOPHILS # (AUTO) 0.05 x10^3/uL (0-0.1); BASOPHILS % (AUTO) 1 % (0-1); EOSINOPHILS # (AUTO) 0.24 x10^3/uL (0-0.4); EOSINOPHILS % (AUTO) 4 % (1-7); LYMPHOCYTES # (AUTO) 0.98 x10^3/uL (1-3.4); LYMPHOCYTES % (AUTO) 14 % (22-44); MD NO; MEAN CORPUSCULAR HEMOGLOBIN 28.1 pg (27.5-34.5); MEAN CORPUSCULAR HGB CONC 32.3 g/dL (33.2-36.2); MEAN CORPUSCULAR VOLUME 87.2 fL (81-97); MEAN PLATELET VOLUME 8.9 fL (7.4-10.4); MONOCYTES # (AUTO) 0.49 x10^3/uL (0.2-0.8); MONOCYTES % (AUTO) 7 % (2-9); NEUTROPHILS # (AUTO) 5.14 x10^3/uL (1.8-6.8); NEUTROPHILS % (AUTO) 75 % (42-75); PLATELET COUNT 166 x10^3/uL (130-400); RED BLOOD COUNT 4.58 x10^6/uL (4.38-5.82); RED CELL DISTRIBUTION WIDTH 19.6 % (9.4-14.8)
[2019-06-25 05:30] LABS: CREATININE 1.27 mg/dL (0.7-1.3)
[2019-06-25 05:58] LABS: ANION GAP 5 mmol/L (5-15)
[2019-06-25 07:00] VITALS: BP 143/85
[2019-06-25] MEDS ORDERED: SPIRONOLACTONE 25 MG TABLET PO SCH (09:00)
[2019-06-25] MEDS ORDERED: CLOPIDOGREL 75 MG TABLET PO SCH (09:00)
[2019-06-25] MEDS ORDERED: MAGNESIUM OXIDE 400 MG TABLET PO SCH (09:00)
[2019-06-25] MEDS ORDERED: FUROSEMIDE 20 MG/2 ML IV SCH (09:00)
[2019-06-25] MEDS: POTASSIUM CHLORIDE 20 MEQ TAB.ER.PRT PO SCH (09:24)
[2019-06-25] MEDS: ASPIRIN 81 MG TABLET EC PO SCH (09:24)
[2019-06-25] MEDS: CARVEDILOL 12.5 MG TABLET PO SCH (09:25)
[2019-06-25] MEDS ORDERED: LISINOPRIL 5 MG TABLET PO SCH (09:30)
[2019-06-25] MEDS ORDERED: MAGN400T50 PO (12:46)
[2019-06-25] MEDS ORDERED: CLOP75TA PO (12:46)
[2019-06-25] MEDS ORDERED: SPIR25TA PO (12:46)
[2019-06-25] MEDS ORDERED: LISI5TAB7 PO (12:46)
[2019-06-25 13:59] VITALS: BP 143/73
== END 2019-06-25 15:12 | disposition home or self-care (01) | DRG 304 ==
LOC: ED 22:57 → EDIP 23:02 → ED 23:18 → 5SO 06-23 01:01 → DCLOUNGE 06-25 15:01
PROVIDERS: ADMIT Internal Medicine; ATTEND Internal Medicine
DX: I16.0 Hypertensive urgency (principal); N17.0 Acute kidney failure with tubular necrosis; I50.43 Acute on chronic combined systolic (congestive) and diastolic (congestive) heart failure; I42.9 Cardiomyopathy, unspecified; I47.2 Ventricular tachycardia; B18.2 Chronic viral hepatitis C; D63.8 Anemia in other chronic diseases classified elsewhere; E78.5 Hyperlipidemia, unspecified; E87.6 Hypokalemia; F12.90 Cannabis use, unspecified, uncomplicated; F15.10 Other stimulant abuse, uncomplicated; F17.200 Nicotine dependence, unspecified, uncomplicated; I11.0 Hypertensive heart disease with heart failure; I25.10 Atherosclerotic heart disease of native coronary artery without angina pectoris; I25.2 Old myocardial infarction; I27.20 Pulmonary hypertension, unspecified; R09.02 Hypoxemia; Z79.82 Long term (current) use of aspirin; Z82.49 Family history of ischemic heart disease and other diseases of the circulatory system; Z86.73 Personal history of transient ischemic attack (TIA), and cerebral infarction without residual deficits; Z95.5 Presence of coronary angioplasty implant and graft
CPT/HCPCS: 36415; 70450; 71045; 80048; 80053; 80061; 80307; 81001; 83036; 83605; 83690; 83735; 83880; 84145; 84439; 84443; 84484; 85025; 87040; 90674; 93005; 93306; 93970; 99285; G0378; J1650; J1940; J2405; J0360; J2270; J3475

== ENCOUNTER 2019-10-16 19:36 | Emergency (ER) | payer OTHER ==
[~2019-10-16] VITALS: Ht 167.6 cm; Wt 66.3 kg
[~2019-10-16 19:36] MED LIST changes: +AMLODIPINE PO; +ATOR-2 PO; +CARV12.52 PO; +CLON0.2T PO; +CLOP75TA PO; +LISI5TAB7 PO; +MAGN400T50 PO
--- NOTE | 2019-10-16 19:42 | NUR ---
SZ PRECAUTIONS IN PLACE
--- NOTE | 2019-10-16 19:59 | NUR ---
THIS IS A 54Y M BIB EMS FOUND IN [facility] OUTSIDE. PER FRIENDS AND PT REPORT, PT USED METH TODAY AND HAD A SZ, UNKNOWN DURATION. UPON ARRIVAL PT A/O 4 MAINTAINING AIRWAY. ONLY COMPLAINT IS HE IS COLD. PT CONNECTED TO ALL MONITORING, VSS, NADN.
[2019-10-16 20:21] LABS: BASOPHILS # (AUTO) 0.04 x10^3/uL (0-0.1); BASOPHILS % (AUTO) 0 % (0-1); EOSINOPHILS # (AUTO) 0.26 x10^3/uL (0-0.4); EOSINOPHILS % (AUTO) 2 % (1-7); LYMPHOCYTES # (AUTO) 1.04 x10^3/uL (1-3.4); LYMPHOCYTES % (AUTO) 9 % (22-44); MD NO; MEAN CORPUSCULAR HEMOGLOBIN 28.2 pg (27.5-34.5); MEAN CORPUSCULAR HGB CONC 33.8 g/dL (33.2-36.2); MEAN CORPUSCULAR VOLUME 83.2 fL (81-97); MEAN PLATELET VOLUME 8.4 fL (7.4-10.4); MONOCYTES % (AUTO) 4 % (2-9); NEUTROPHILS # (AUTO) 10.12 x10^3/uL (1.8-6.8); NEUTROPHILS % (AUTO) 85 % (42-75); PLATELET COUNT 166 x10^3/uL (130-400); RED BLOOD COUNT 5.56 x10^6/uL (4.38-5.82); RED CELL DISTRIBUTION WIDTH 17.1 % (9.4-14.8)
[2019-10-16 20:25] LABS: ALBUMIN 3.1 g/dL (3.4-5.0); ANION GAP 13 mmol/L (5-15); CALCIUM 8.7 mg/dL (8.5-10.1); CHLORIDE 104 mmol/L (98-107); CREATININE 1.82 mg/dL (0.7-1.3)
--- NOTE | 2019-10-16 20:47 | NUR ---
PT ATTEMPTED TO AMB TO RESTROOM, PT UNABLE TO WALK BECAUSE OF DIZZINESS. PT PROVIDED URINAL.
--- NOTE | 2019-10-16 20:55 | NUR ---
PT TOLERATING PO FLUIDS. PT FATHER UPDATED ON CONDITION. FATHER CONTACT # [phone]
--- NOTE | 2019-10-16 21:02 | NUR ---
PT REQ BATHROOM, PT TOO UNSTEADY TO AMB PREVIOUS ATTEMPT FAILED. PT OFFERED BEDPAN/ CAMMODE, PT REFUSED BOTH. PT ALSO REFUSING TO SIGN REG PAPERS UNTIL HE HAS A BOWEL MOVEMENT.
--- NOTE | 2019-10-16 21:25 | NUR ---
GERMAN FRIEND [phone] CALLED.
--- NOTE | 2019-10-16 21:57 | NUR ---
pt still tolerating po fluids becoming more alert as time passess. pt educated on poc
--- NOTE | 2019-10-16 22:49 | NUR ---
PT CONTINUES TO SLEEP ON [facility]
--- NOTE | 2019-10-16 23:50 | NUR ---
PT AMB TO RESTROOM, STILL UNSTEADY GAIT AT THIS TIME REQ ASSIST TO BALANCE. WILL CONTINUE TO MONITOR.
--- NOTE | 2019-10-17 00:32 | NUR ---
Father: Adalberto Evans [phone] call for pickling drum operator
[2019-10-17 02:29] VITALS: BP 146/86
--- NOTE | 2019-10-17 02:59 | NUR ---
PT FATHER CALLED AGAIN TO CHECK ON PT STATUS. FATHER SAID CALL FOR RIDE HOME FROM ER
--- NOTE | 2019-10-17 03:12 | NUR ---
PT BACK FROM CT AT THIS TIME
--- NOTE | 2019-10-17 03:43 | NUR ---
FATHER CALLED FOR RIDE HOME. PT UP FOR DC
== END 2019-10-17 03:59 | disposition home or self-care (01) ==
LOC: MERGE 19:36 → EDBD 19:36 → ED 20:15
DX: R56.9 Unspecified convulsions (principal); F15.129 Other stimulant abuse with intoxication, unspecified; I11.0 Hypertensive heart disease with heart failure; I50.9 Heart failure, unspecified; I25.10 Atherosclerotic heart disease of native coronary artery without angina pectoris; I25.2 Old myocardial infarction; R94.31 Abnormal electrocardiogram [ECG] [EKG]
CPT/HCPCS: 36415; 70450; 80048; 82040; 85025; 93005; 99285

== ENCOUNTER 2019-12-15 10:33 | Inpatient (IN) | payer OTHER ==
[~2019-12-15] VITALS: Ht 167.6 cm; Wt 69.8 kg
--- NOTE | 2019-12-15 11:06 | NUR ---
pt presents to ED with c/o sob, left sided chest pressure, and left flank and left leg numbness x 3 days. pt admits to meth use several days ago. pt is markedly hypertensive in triage, this RN to perform manual bp. all monitors in place. EKG completed in triage. pt is a&o, resps even and unlabored, sinus tach rate 100's on manager cardiac, no ectopy noted. call light in reach. EDMD VanBibber at bedside completing initial assessment.
[2019-12-15 11:27] LABS: BASOPHILS # (AUTO) 0.06 x10^3/uL (0-0.1); BASOPHILS % (AUTO) 1 % (0-1); EOSINOPHILS # (AUTO) 0.23 x10^3/uL (0-0.4); EOSINOPHILS % (AUTO) 2 % (1-7); LYMPHOCYTES # (AUTO) 0.93 x10^3/uL (1-3.4); LYMPHOCYTES % (AUTO) 10 % (22-44); MD NO; MEAN CORPUSCULAR HEMOGLOBIN 27.6 pg (27.5-34.5); MEAN CORPUSCULAR VOLUME 83.8 fL (81-97); MEAN PLATELET VOLUME 8.8 fL (7.4-10.4); MONOCYTES # (AUTO) 0.52 x10^3/uL (0.2-0.8); MONOCYTES % (AUTO) 5 % (2-9); NEUTROPHILS % (AUTO) 82 % (42-75); PLATELET COUNT 185 x10^3/uL (130-400); RED BLOOD COUNT 4.71 x10^6/uL (4.38-5.82); RED CELL DISTRIBUTION WIDTH 16.8 % (9.4-14.8)
[2019-12-15] MEDS ORDERED: LABETALOL 5MG/ML, 20ML ONE (11:27)
[2019-12-15] MEDS ORDERED: LABETALOL 5MG/ML, 20ML IVPush ONE (11:30)
--- NOTE | 2019-12-15 11:33 | NUR ---
left arm and leg weakness noted upon assessment by this RN, pt states "yeah my left leg has been dragging for 3 days now, my left arm has gone numb on and off for 3 days, I don't know how long it's been weak for." KAITLYNN Albert notified. notified manual bp was 180/125. instructed RN to administer labetalol iv push 10mg. MD to add head CT onto order set. instructed RN to administer labetalol prior to CT scans. called CT and asked them to collect pt as soon as possible, no need to wait for lab results. CT states both scanners are occupied and pt will be collected as soon as scanner is free.
[2019-12-15 11:38] LABS: ALANINE AMINOTRANSFERASE 33 U/L (12-78); ALBUMIN 2.8 g/dL (3.4-5.0); ANION GAP 7 mmol/L (5-15); CALCIUM 8.1 mg/dL (8.5-10.1); CHLORIDE 109 mmol/L (98-107); CREATININE 1.48 mg/dL (0.7-1.3)
[2019-12-15 11:40] LABS: INTERNATIONAL NORMALIZED RATIO 1.12 (0.93-1.1); PROTHROMBIN TIME 11.9 Seconds (9.6-11.5)
--- NOTE | 2019-12-15 11:42 | NUR ---
labetalol admin slowly over 5 min, pt tolerated well. CT not ready for pt yet, pt prepped for CT.
[2019-12-15 11:43] LABS: ALKALINE PHOSPHATASE 181 U/L (45-117); BILIRUBIN,TOTAL 1.6 mg/dL (0.2-1.0); TOTAL PROTEIN 8.4 g/dL (6.4-8.2); TROPONIN I 0.079 ng/mL (0.000-0.045)
--- NOTE | 2019-12-15 11:45 | NUR ---
pt to CT with this RN and tech, court recording monitor in place for transport.
[2019-12-15] MEDS ORDERED: LORazepam 2 MG/ML, 1ML ONE (12:20)
[2019-12-15] MEDS ORDERED: SODIUM CHLORIDE 0.9%, 500ML IVBOLUS ONE (12:30)
[2019-12-15] MEDS ORDERED: LORazepam 2 MG/ML, 1ML IVPush ONE (12:30)
--- NOTE | 2019-12-15 12:30 | NUR ---
CT SCANS REVIEWED BY EDMD. PT ANXIOUS, HYPERVENTILATING, RESP RATE 20-40. EDMD NOTIFIED. ORDER RECEIVED FOR ATIVAN 1MG IVP. MED ADMINISTERED PER EMAR, PT TOLERATED WELL. ALL MONITORS IN PLACE. PT UPDATED WITH POC, AGREEABLE. PT INSTRUCTED TO PROVIDE CLEAN CATCH UA WHEN ABLE. CALL LIGHT IN REACH.
--- NOTE | 2019-12-15 13:15 | NUR ---
PT SLEEPING, AWAKENS TO VOICE. RESPS EVEN, SHALLOW, RATE 30'S. SPO2 88% ON ROOM AIR. OXYGEN APPLIED AT 4L/MIN, VIA NC. SPO2 MAINTAINING >95% ON 4L/MIN. PT HAS OCCAISIONAL COUGH, WHEN ASKED, PT STATES HE HAS NOT HAD COUGH AT HOME PRIOR TO THIS. EDMD VANBIBBER NOTIFIED. NEURO ASSESSMENT REPEATED, NO CHANGE IN NEURO STATUS. PT STILL HAVING SEVERE WEAKNESS TO LEFT ARM AND LEG, PUPILS EQUAL, ROUND AND REACTIVE. NO DRIFT NOTED. LEFT GRASP STILL WEAKER THAN RIGHT. PT AWAKE, ORIENTED X 4, DROWSY. EDMD TO REASSESS PT.
--- NOTE | 2019-12-15 13:43 | NUR ---
PT SLEEPING, RESPS EVEN, SHALLOW, RATE 20-30, MD DYER NOTIFIED. SPO2 100% ON 4L. PT HAS NOT PRODUCED URINE SAMPLE YET.
[2019-12-15] MEDS ORDERED: DOXYCYCLINE 100 MG in DEXTROSE 5% 250 ML IV ONE (14:00)
[2019-12-15] MEDS ORDERED: ASPIRIN 325 MG TABLET PO ONE (14:00)
--- NOTE | 2019-12-15 14:10 | NUR ---
doxycycline ordered from pharmacy.
--- NOTE | 2019-12-15 14:26 | NUR ---
doxycycline not arrived yet from pharmacy. blood cx drawn x 2. pt a&o, resps even and unlabored, normal rate. droplet plus precautions in place as pt is covid rule out.
[2019-12-15 14:36] LABS: C-REACTIVE PROTEIN, QUANT 6.6 mg/dL (0.02-0.49)
[2019-12-15] MEDS ORDERED: ASPIRIN 325 MG TABLET ONE (14:40)
--- NOTE | 2019-12-15 14:44 | NUR ---
PHARMACY PAGED THIRD TIME FOR DOXYCYCLINE, STILL NOT RECEIVED. MD QUIÑONEZ AT BEDSIDE FOR ADMIT ASSESSMENT.
--- NOTE | 2019-12-15 14:46 | NUR ---
md araujo made aware of bp 164/123, speaking with pt currently.
--- NOTE | 2019-12-15 15:10 | NUR ---
med rec complete, urine sample collected prior to start of doxycycline. covid swab completed. report given to DEMETRIO Chacon.
[2019-12-15] MEDS ORDERED: NITROGLYCERIN SINGLE TAB 0.4 MG SL PRN (15:30)
[2019-12-15] MEDS ORDERED: LABETALOL 5MG/ML, 20ML IVPush PRN (15:30)
[2019-12-15] MEDS ORDERED: CEFTRIAXONE PMX 1GM/50ML 50 ML IV SCH (15:30)
[2019-12-15] MEDS ORDERED: NICOTINE 14MG/24 HR PATCH.TD24 TD PRN (15:30)
[2019-12-15] MEDS ORDERED: HEPARIN 5,000 UNITS/ML, 1ML SQ SCH (15:30)
[2019-12-15] MEDS ORDERED: GABAPENTIN 300 MG CAPSULE PO PRN (15:30)
[2019-12-15] MEDS ORDERED: ACETAMINOPHEN 325 MG TABLET PO PRN (15:30)
[2019-12-15] MEDS ORDERED: ONDANSETRON 2MG/ML, 2ML IVPush PRN (15:30)
[2019-12-15] MEDS ORDERED: hydrALAzine 20 MG/ML, 1ML IVPush PRN (15:30)
[2019-12-15 15:49] LABS: TROPONIN I 0.084 ng/mL (0.000-0.045)
[2019-12-15 15:50] LABS: MICROSCOPIC AUTO
[2019-12-15] MEDS: ISOSORBIDE DINITRATE 10 MG TABLET PO SCH ×2 (16:00→20:47)
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
[2019-12-15] MEDS ORDERED: CEFTRIAXONE PMX 1GM/50ML 50 ML ONE (17:08)
--- NOTE | 2019-12-15 17:10 | NUR ---
Continue to monitor patient for BP and anxiety status. Pt is stable, sitting up on the side of the bed for comfort. No slip socks applied.
[2019-12-15] MEDS ORDERED: hydrALAzine 20 MG/ML, 1ML ONE (17:38)
--- NOTE | 2019-12-15 18:03 | NUR ---
Report to floor RN: Pt has been given hydralazine, labetolol and ultram to help reduce NIBP. Pt is sitting on side of bed eating dinner tray. Pt is very emotional, and RN discussed possibly setting up an appointment with a therapist to help with his fears and anxiety. Pt is ready for transport to floor.
[2019-12-15 18:39] VITALS: BP 146/97
[2019-12-15 19:48] VITALS: BP 165/108
[2019-12-15] MEDS: CARVEDILOL 12.5 MG TABLET PO SCH (20:10)
[2019-12-15] MEDS: TICAGRELOR 90 MG TABLET PO SCH (20:10)
[2019-12-15] MEDS ORDERED: ATORVASTATIN 40 MG TABLET PO SCH (21:00)
[2019-12-15 21:19] LABS: TROPONIN I 0.108 ng/mL (0.000-0.045)
[2019-12-16 01:20] VITALS: BP 145/91
[2019-12-16 07:26] LABS: BASOPHILS # (AUTO) 0.04 x10^3/uL (0-0.1); BASOPHILS % (AUTO) 1 % (0-1); EOSINOPHILS # (AUTO) 0.39 x10^3/uL (0-0.4); EOSINOPHILS % (AUTO) 5 % (1-7); LYMPHOCYTES # (AUTO) 0.92 x10^3/uL (1-3.4); LYMPHOCYTES % (AUTO) 12 % (22-44); MD NO; MEAN CORPUSCULAR HEMOGLOBIN 27.5 pg (27.5-34.5); MEAN CORPUSCULAR HGB CONC 32.5 g/dL (33.2-36.2); MEAN CORPUSCULAR VOLUME 84.5 fL (81-97); MEAN PLATELET VOLUME 8.3 fL (7.4-10.4); MONOCYTES % (AUTO) 8 % (2-9); NEUTROPHILS # (AUTO) 6.02 x10^3/uL (1.8-6.8); NEUTROPHILS % (AUTO) 76 % (42-75); PLATELET COUNT 171 x10^3/uL (130-400); RED BLOOD COUNT 4.55 x10^6/uL (4.38-5.82); RED CELL DISTRIBUTION WIDTH 16.9 % (9.4-14.8)
[2019-12-16 07:41] LABS: ANION GAP 8 mmol/L (5-15); CALCIUM 8.1 mg/dL (8.5-10.1); CHLORIDE 111 mmol/L (98-107); CREATININE 1.38 mg/dL (0.7-1.3)
[2019-12-16 07:44] LABS: C-REACTIVE PROTEIN, QUANT 5.5 mg/dL (0.02-0.49)
[2019-12-16 07:45] LABS: TROPONIN I 0.091 ng/mL (0.000-0.045)
[2019-12-16] MEDS ORDERED: ASPIRIN 81 MG TABLET EC PO SCH (09:00)
[2019-12-16] MEDS ORDERED: AMLODIPINE 10 MG TAB PO SCH (09:00)
[2019-12-16] MEDS: ISOSORBIDE DINITRATE 10 MG TABLET PO SCH (09:25)
[2019-12-16] MEDS: CARVEDILOL 12.5 MG TABLET PO SCH (09:26)
[2019-12-16] MEDS: TICAGRELOR 90 MG TABLET PO SCH (09:26)
[2019-12-16 09:34] VITALS: BP 175/117
[2019-12-16] MEDS ORDERED: AZITHROMYCIN 500 MG in SODIUM CHLORIDE 0.9% 250 ML IV SCH (10:00)
== END 2019-12-16 12:21 | disposition left against medical advice (07) | DRG 682 ==
LOC: ED 11:28 → EDIP 14:01 → 4NW 18:18
PROVIDERS: ADMIT Hospitalist; ATTEND Hospitalist
DX: N17.9 Acute kidney failure, unspecified (principal); J15.6 Pneumonia due to other Gram-negative bacteria; I16.1 Hypertensive emergency; I50.20 Unspecified systolic (congestive) heart failure; I42.9 Cardiomyopathy, unspecified; I11.0 Hypertensive heart disease with heart failure; I25.10 Atherosclerotic heart disease of native coronary artery without angina pectoris; F15.10 Other stimulant abuse, uncomplicated; E78.5 Hyperlipidemia, unspecified; B19.20 Unspecified viral hepatitis C without hepatic coma; I27.20 Pulmonary hypertension, unspecified; Z53.29 Procedure and treatment not carried out because of patient's decision for other reasons; Z95.5 Presence of coronary angioplasty implant and graft; I25.2 Old myocardial infarction; Z86.73 Personal history of transient ischemic attack (TIA), and cerebral infarction without residual deficits
CPT/HCPCS: 36415; 70450; 71275; 74175; 80048; 80053; 81001; 82728; 83605; 83615; 83690; 83735; 84100; 84145; 84484; 85025; 85610; 85730; 86140; 87040; 93005; 96361; 96365; 96366; 96368; 96375; 96376; G0378; J0696; J7060; J0360; J2060; J7040; U0001-CS

== ENCOUNTER 2019-12-18 06:58 | Inpatient (IN) | payer MEDICAID, OTHER ==
[~2019-12-18] VITALS: Ht 167.6 cm; Wt 71.5 kg
[2019-12-18 08:23] LABS: MEAN CORPUSCULAR HEMOGLOBIN 27.6 pg (27.5-34.5); MEAN CORPUSCULAR HGB CONC 33.1 g/dL (33.2-36.2); MEAN CORPUSCULAR VOLUME 83.5 fL (81-97); MEAN PLATELET VOLUME 8.3 fL (7.4-10.4); PLATELET COUNT 217 x10^3/uL (130-400); RED BLOOD COUNT 4.66 x10^6/uL (4.38-5.82); RED CELL DISTRIBUTION WIDTH 17.3 % (9.4-14.8)
[2019-12-18 08:26] LABS: ALBUMIN 2.6 g/dL (3.4-5.0); ANION GAP 8 mmol/L (5-15); CHLORIDE 111 mmol/L (98-107)
[2019-12-18 08:29] LABS: ALANINE AMINOTRANSFERASE 37 U/L (12-78); ALKALINE PHOSPHATASE 184 U/L (45-117); BILIRUBIN,TOTAL 1.4 mg/dL (0.2-1.0); CREATININE 1.21 mg/dL (0.7-1.3)
[2019-12-18 08:30] LABS: MICROSCOPIC INDICATED
[2019-12-18 08:40] LABS: BASOPHILS # (AUTO) 0.07 x10^3/uL (0-0.1); BASOPHILS % (AUTO) 1 % (0-1); EOSINOPHILS # (AUTO) 0.28 x10^3/uL (0-0.4); EOSINOPHILS % (AUTO) 3 % (1-7); LYMPHOCYTES # (AUTO) 0.87 x10^3/uL (1-3.4); LYMPHOCYTES % (AUTO) 10 % (22-44); MD SCAN; MONOCYTES # (AUTO) 0.49 x10^3/uL (0.2-0.8); MONOCYTES % (AUTO) 6 % (2-9); NEUTROPHILS # (AUTO) 7.15 x10^3/uL (1.8-6.8); NEUTROPHILS % (AUTO) 81 % (42-75)
--- NOTE | 2019-12-18 08:40 | NUR ---
PT RESTING IN BED, CALL LIGHT IN REACH
--- NOTE | 2019-12-18 09:02 | NUR ---
ERMD LAW AT BEDSIDE TO DISCUSS POC
[2019-12-18] MEDS ORDERED: LIDOCAINE 1%, 10ML ONE (09:08)
--- NOTE | 2019-12-18 10:00 | NUR ---
pt to IR
[2019-12-18] MEDS ORDERED: FUROSEMIDE 40 MG/4 ML ONE (10:28)
[2019-12-18] MEDS ORDERED: NITROGLYCERIN OINT 2%, 1GM TP ONE ×2 (10:30→10:43)
[2019-12-18] MEDS ORDERED: FUROSEMIDE 40 MG/4 ML IV ONE (10:30)
--- NOTE | 2019-12-18 10:49 | NUR ---
pt resting in bed, call light in reach
[2019-12-18] MEDS ORDERED: hydrALAzine 20 MG/ML, 1ML IVPush PRN (11:30)
[2019-12-18] MEDS ORDERED: LABETALOL 5MG/ML, 20ML IVPush PRN (11:30)
[2019-12-18] MEDS ORDERED: NITROGLYCERIN 0.4 MG/SPRAY SL PRN (11:30)
[2019-12-18] MEDS: ASPIRIN 81 MG TABLET EC PO SCH (11:30)
[2019-12-18] MEDS ORDERED: TRAZODONE 50MG TABLET PO PRN (11:30)
[2019-12-18] MEDS ORDERED: MAGNESIUM OXIDE 400 MG TABLET PO SCH (11:30)
[2019-12-18] MEDS ORDERED: ONDANSETRON 2MG/ML, 2ML IVPush PRN (11:30)
[2019-12-18] MEDS ORDERED: NITROGLYCERIN 0.4 MG BOTTLE (25 TABS) SL PRN (11:30)
[2019-12-18] MEDS ORDERED: LISINOPRIL 10 MG TABLET PO SCH (11:30)
[2019-12-18] MEDS ORDERED: GABAPENTIN 300 MG CAPSULE PO PRN (11:30)
[2019-12-18] MEDS ORDERED: CARVEDILOL 12.5 MG TABLET PO SCH (11:30)
[2019-12-18] MEDS ORDERED: ACETAMINOPHEN 325 MG TABLET PO PRN (11:30)
[2019-12-18] MEDS ORDERED: POTASSIUM CHLORIDE 20 MEQ TAB.ER.PRT ONE (11:32)
[2019-12-18] MEDS ORDERED: ENOXAPARIN 40 MG/0.4 ML ONE (11:32)
[2019-12-18] MEDS ORDERED: LISINOPRIL 20 MG TABLET ONE (11:32)
[2019-12-18] MEDS ORDERED: ASPIRIN 81 MG TABLET CHEW ONE (11:33)
[2019-12-18] MEDS ORDERED: MAGNESIUM OXIDE 400 MG TABLET ONE (11:33)
[2019-12-18] MEDS ORDERED: CARVEDILOL 12.5 MG TABLET ONE (11:33)
[2019-12-18 11:34] LABS: TROPONIN I 0.196 ng/mL (0.000-0.045)
--- NOTE | 2019-12-18 11:36 | NUR ---
MD BRINK AT BEDSIDE FOR EVAL
[2019-12-18] MEDS: POTASSIUM CHLORIDE 20 MEQ TAB.ER.PRT PO SCH (11:38)
[2019-12-18] MEDS: ENOXAPARIN 40 MG/0.4 ML SQ SCH (11:39)
[2019-12-18 11:42] LABS: BENZODIAZEPINE SCREEN, URINE Negative (Negative)
[2019-12-18 11:43] LABS: AMPHETAMINE SCREEN, URINE Positive (Negative); BARBITURATE SCREEN, URINE Negative (Negative); CANNABINOID SCREEN, URINE Positive (Negative); COCAINE SCREEN, URINE Negative (Negative); METHADONE SCREEN, URINE Negative (Negative); OPIATE SCREEN, URINE Negative (Negative)
[2019-12-18] MEDS ORDERED: ASPIRIN 325 MG TABLET PO ONE (12:00)
--- NOTE | 2019-12-18 12:30 | NUR ---
REPORT CALLED TO JC
[2019-12-18 13:13] VITALS: BP 150/96
[2019-12-18] MEDS ORDERED: ASPIRIN 325 MG TABLET ONE (13:36)
[2019-12-18 14:08] VITALS: BP 150/96
[2019-12-18 15:20] VITALS: BP 136/69
[2019-12-18] MEDS: CEFTRIAXONE PMX 1GM/50ML 50 ML IV SCH (15:31)
[2019-12-18] MEDS ORDERED: FUROSEMIDE 40 MG/4 ML IV SCH (17:00)
[2019-12-18] MEDS: ISOSORBIDE DINITRATE 10 MG TABLET PO SCH ×2 (17:38→21:00)
[2019-12-18 18:47] LABS: TROPONIN I 0.167 ng/mL (0.000-0.045)
[2019-12-18 20:12] VITALS: BP 135/83
[2019-12-18] MEDS: CARVEDILOL 25 MG TABLET PO SCH (21:00)
[2019-12-18] MEDS: TICAGRELOR 90 MG TABLET PO SCH (21:33)
[2019-12-18] MEDS: ATORVASTATIN 40 MG TABLET PO SCH (21:33)
[2019-12-18] MEDS: DOXYCYCLINE 100MG TABLET PO SCH (21:33)
[2019-12-18 21:38] VITALS: BP 109/65
[2019-12-18] MEDS: OXYcodone IR 5MG TABLET PO PRN (23:10)
[2019-12-18] MEDS: MAGNESIUM OXIDE 400 MG TABLET PO SCH (23:10)
[2019-12-19 01:03] VITALS: BP 138/88
[2019-12-19 05:10] LABS: BASOPHILS # (AUTO) 0.04 x10^3/uL (0-0.1); BASOPHILS % (AUTO) 1 % (0-1); EOSINOPHILS # (AUTO) 0.36 x10^3/uL (0-0.4); EOSINOPHILS % (AUTO) 6 % (1-7); LYMPHOCYTES % (AUTO) 16 % (22-44); MD NO; MEAN CORPUSCULAR HGB CONC 33.4 g/dL (33.2-36.2); MEAN CORPUSCULAR VOLUME 83.7 fL (81-97); MEAN PLATELET VOLUME 8.2 fL (7.4-10.4); MONOCYTES # (AUTO) 0.47 x10^3/uL (0.2-0.8); MONOCYTES % (AUTO) 8 % (2-9); NEUTROPHILS # (AUTO) 3.92 x10^3/uL (1.8-6.8); NEUTROPHILS % (AUTO) 69 % (42-75); PLATELET COUNT 163 x10^3/uL (130-400); RED BLOOD COUNT 4.23 x10^6/uL (4.38-5.82); RED CELL DISTRIBUTION WIDTH 16.7 % (9.4-14.8)
[2019-12-19 05:19] LABS: INTERNATIONAL NORMALIZED RATIO 1.14 (0.93-1.1); PROTHROMBIN TIME 12.1 Seconds (9.6-11.5)
[2019-12-19 05:21] LABS: ALBUMIN 2.1 g/dL (3.4-5.0); ANION GAP 8 mmol/L (5-15); CALCIUM 7.8 mg/dL (8.5-10.1); CHLORIDE 108 mmol/L (98-107)
[2019-12-19 05:24] LABS: ALANINE AMINOTRANSFERASE 28 U/L (12-78); ALKALINE PHOSPHATASE 162 U/L (45-117); BILIRUBIN,TOTAL 1.1 mg/dL (0.2-1.0); CREATININE 1.58 mg/dL (0.7-1.3)
[2019-12-19 08:00] VITALS: BP 169/91
[2019-12-19] MEDS: AMLODIPINE 10 MG TAB PO SCH (08:45)
[2019-12-19] MEDS: ASPIRIN 81 MG TABLET EC PO SCH (08:45)
[2019-12-19] MEDS: ISOSORBIDE DINITRATE 10 MG TABLET PO SCH ×3 (08:46→22:25)
[2019-12-19] MEDS: CARVEDILOL 25 MG TABLET PO SCH ×2 (08:46→22:24)
[2019-12-19] MEDS: TICAGRELOR 90 MG TABLET PO SCH ×2 (08:46→22:25)
[2019-12-19] MEDS: SPIRONOLACTONE 25 MG TABLET PO SCH (08:46)
[2019-12-19] MEDS: LISINOPRIL 40 MG TABLET PO SCH (08:46)
[2019-12-19] MEDS: DOXYCYCLINE 100MG TABLET PO SCH ×2 (08:47→22:24)
[2019-12-19] MEDS: SENNA/DOCUSATE TABLET PO SCH (08:47)
[2019-12-19] MEDS: POTASSIUM CHLORIDE 20 MEQ TAB.ER.PRT PO SCH (08:54)
[2019-12-19] MEDS: ENOXAPARIN 40 MG/0.4 ML SQ SCH (12:03)
[2019-12-19] MEDS: MAGNESIUM OXIDE 400 MG TABLET PO SCH ×2 (12:03→22:24)
[2019-12-19 13:19] VITALS: BP 108/61
[2019-12-19] MEDS: CEFTRIAXONE PMX 1GM/50ML 50 ML IV SCH (15:23)
[2019-12-19 18:50] VITALS: BP 137/71
[2019-12-19 22:11] VITALS: BP 139/85
[2019-12-19] MEDS: OXYcodone IR 5MG TABLET PO PRN (22:24)
[2019-12-19] MEDS: ATORVASTATIN 40 MG TABLET PO SCH (22:24)
[2019-12-20 01:19] VITALS: BP 113/71
[2019-12-20 05:18] LABS: BASOPHILS # (AUTO) 0.02 x10^3/uL (0-0.1); BASOPHILS % (AUTO) 0 % (0-1); EOSINOPHILS # (AUTO) 0.33 x10^3/uL (0-0.4); EOSINOPHILS % (AUTO) 6 % (1-7); LYMPHOCYTES # (AUTO) 0.86 x10^3/uL (1-3.4); LYMPHOCYTES % (AUTO) 14 % (22-44); MD NO; MEAN CORPUSCULAR HEMOGLOBIN 27.2 pg (27.5-34.5); MEAN CORPUSCULAR HGB CONC 32.4 g/dL (33.2-36.2); MEAN CORPUSCULAR VOLUME 83.8 fL (81-97); MEAN PLATELET VOLUME 8.7 fL (7.4-10.4); MONOCYTES # (AUTO) 0.54 x10^3/uL (0.2-0.8); MONOCYTES % (AUTO) 9 % (2-9); NEUTROPHILS # (AUTO) 4.28 x10^3/uL (1.8-6.8); NEUTROPHILS % (AUTO) 71 % (42-75); PLATELET COUNT 176 x10^3/uL (130-400); RED BLOOD COUNT 4.03 x10^6/uL (4.38-5.82); RED CELL DISTRIBUTION WIDTH 16.6 % (9.4-14.8)
[2019-12-20 05:30] LABS: ALBUMIN 2.1 g/dL (3.4-5.0); ANION GAP 9 mmol/L (5-15); CALCIUM 7.7 mg/dL (8.5-10.1); CHLORIDE 110 mmol/L (98-107)
[2019-12-20 05:35] LABS: ALANINE AMINOTRANSFERASE 28 U/L (12-78); ALKALINE PHOSPHATASE 148 U/L (45-117); BILIRUBIN,TOTAL 0.5 mg/dL (0.2-1.0); CREATININE 1.48 mg/dL (0.7-1.3); TOTAL PROTEIN 6.8 g/dL (6.4-8.2)
[2019-12-20] MEDS: OXYcodone IR 5MG TABLET PO PRN (06:13)
[2019-12-20 06:45] VITALS: BP 124/75
[2019-12-20] MEDS: LISINOPRIL 40 MG TABLET PO SCH (09:46)
[2019-12-20] MEDS: AMLODIPINE 10 MG TAB PO SCH (09:46)
[2019-12-20] MEDS: CARVEDILOL 25 MG TABLET PO SCH ×2 (09:47→21:38)
[2019-12-20] MEDS: DOXYCYCLINE 100MG TABLET PO SCH ×2 (09:47→21:39)
[2019-12-20] MEDS: TICAGRELOR 90 MG TABLET PO SCH ×2 (09:47→21:37)
[2019-12-20] MEDS: ISOSORBIDE DINITRATE 10 MG TABLET PO SCH ×3 (09:47→21:37)
[2019-12-20] MEDS: POTASSIUM CHLORIDE 20 MEQ TAB.ER.PRT PO SCH (09:47)
[2019-12-20] MEDS: SPIRONOLACTONE 25 MG TABLET PO SCH (09:47)
[2019-12-20] MEDS: ASPIRIN 81 MG TABLET EC PO SCH (09:48)
[2019-12-20] MEDS: SENNA/DOCUSATE TABLET PO SCH (09:48)
[2019-12-20] MEDS: MAGNESIUM OXIDE 400 MG TABLET PO SCH ×2 (11:57→21:37)
[2019-12-20] MEDS: ENOXAPARIN 40 MG/0.4 ML SQ SCH (11:58)
[2019-12-20 12:20] VITALS: BP 137/87
[2019-12-20] MEDS: CEFTRIAXONE PMX 1GM/50ML 50 ML IV SCH (14:35)
[2019-12-20 20:00] VITALS: BP 115/75
[2019-12-20] MEDS: ATORVASTATIN 40 MG TABLET PO SCH (21:38)
[2019-12-21 04:41] VITALS: BP 146/95
[2019-12-21 05:11] LABS: BASOPHILS # (AUTO) 0.03 x10^3/uL (0-0.1); BASOPHILS % (AUTO) 0 % (0-1); EOSINOPHILS # (AUTO) 0.27 x10^3/uL (0-0.4); EOSINOPHILS % (AUTO) 4 % (1-7); LYMPHOCYTES % (AUTO) 11 % (22-44); MD NO; MEAN CORPUSCULAR HEMOGLOBIN 27.1 pg (27.5-34.5); MEAN CORPUSCULAR HGB CONC 32.5 g/dL (33.2-36.2); MEAN CORPUSCULAR VOLUME 83.6 fL (81-97); MEAN PLATELET VOLUME 8.6 fL (7.4-10.4); MONOCYTES # (AUTO) 0.55 x10^3/uL (0.2-0.8); MONOCYTES % (AUTO) 9 % (2-9); NEUTROPHILS # (AUTO) 4.68 x10^3/uL (1.8-6.8); NEUTROPHILS % (AUTO) 75 % (42-75); PLATELET COUNT 179 x10^3/uL (130-400); RED BLOOD COUNT 4.31 x10^6/uL (4.38-5.82)
[2019-12-21 05:27] LABS: ALBUMIN 2.2 g/dL (3.4-5.0); CHLORIDE 113 mmol/L (98-107)
[2019-12-21 05:31] LABS: ALANINE AMINOTRANSFERASE 27 U/L (12-78); ALKALINE PHOSPHATASE 159 U/L (45-117); ANION GAP 7 mmol/L (5-15); BILIRUBIN,TOTAL 0.5 mg/dL (0.2-1.0); CREATININE 1.35 mg/dL (0.7-1.3); TOTAL PROTEIN 7.3 g/dL (6.4-8.2)
[2019-12-21 06:40] VITALS: BP 130/79
[2019-12-21] MEDS ORDERED: CEFDINIR 300 MG CAPSULE PO SCH (09:00)
[2019-12-21] MEDS: ASPIRIN 81 MG TABLET EC PO SCH (10:01)
[2019-12-21] MEDS: SPIRONOLACTONE 25 MG TABLET PO SCH (10:01)
[2019-12-21] MEDS: POTASSIUM CHLORIDE 20 MEQ TAB.ER.PRT PO SCH (10:01)
[2019-12-21] MEDS: MAGNESIUM OXIDE 400 MG TABLET PO SCH (10:02)
[2019-12-21] MEDS: TICAGRELOR 90 MG TABLET PO SCH (10:02)
[2019-12-21] MEDS: CARVEDILOL 25 MG TABLET PO SCH (10:02)
[2019-12-21] MEDS: LISINOPRIL 40 MG TABLET PO SCH (10:02)
[2019-12-21] MEDS: AMLODIPINE 10 MG TAB PO SCH (10:02)
[2019-12-21] MEDS: ISOSORBIDE DINITRATE 10 MG TABLET PO SCH (10:02)
[2019-12-21] MEDS: DOXYCYCLINE 100MG TABLET PO SCH (10:02)
[2019-12-21] MEDS: SENNA/DOCUSATE TABLET PO SCH (10:03)
[2019-12-21 10:13] LABS: TROPONIN I 0.077 ng/mL (0.000-0.045)
[2019-12-21] MEDS: ENOXAPARIN 40 MG/0.4 ML SQ SCH (12:07)
[2019-12-21 12:14] VITALS: BP 138/93
[2019-12-21] MEDS ORDERED: DOXY100T PO (14:00)
[2019-12-21] MEDS ORDERED: CEFD300C37 PO (14:00)
== END 2019-12-21 15:41 | disposition home or self-care (01) | DRG 291 ==
LOC: ED 08:01 → EDIP 10:50 → 5SO 13:09
PROVIDERS: ADMIT Hospitalist; ATTEND Hospitalist
DX: I11.0 Hypertensive heart disease with heart failure (principal); N17.0 Acute kidney failure with tubular necrosis; J18.9 Pneumonia, unspecified organism; E87.2 Acidosis; I16.1 Hypertensive emergency; I47.2 Ventricular tachycardia; R18.8 Other ascites; I50.23 Acute on chronic systolic (congestive) heart failure; I27.20 Pulmonary hypertension, unspecified; E78.5 Hyperlipidemia, unspecified; G62.9 Polyneuropathy, unspecified; F15.90 Other stimulant use, unspecified, uncomplicated; I25.10 Atherosclerotic heart disease of native coronary artery without angina pectoris; Z82.49 Family history of ischemic heart disease and other diseases of the circulatory system; Z83.3 Family history of diabetes mellitus; Z86.73 Personal history of transient ischemic attack (TIA), and cerebral infarction without residual deficits; Z91.19 Patient's noncompliance with other medical treatment and regimen; I25.2 Old myocardial infarction; B19.20 Unspecified viral hepatitis C without hepatic coma; R14.0 Abdominal distension (gaseous); R74.8 Abnormal levels of other serum enzymes
CPT/HCPCS: 36415; 49083; 71045; 74176; 80053; 80307; 81001; 83605; 83690; 83735; 83880; 84100; 84145; 84484; 85025; 85610; 93005; 93970; 96374; 99285; G0378; J0696; J1650; J1940

== ENCOUNTER → 2020-02-17 | Outpatient (CLI) | payer MEDICAID ==
[~2020-02-17] MED LIST changes: +CEFD300C37 PO; +DOXY100T PO; +LISI-424 PO; +REGADENOSON 0.4 MG/5 ML SYRINGE ONE
== END | disposition home or self-care (01) ==
LOC: CFH 12:08
PROVIDERS: ATTEND Internal Medicine Cardiovascular Disease
DX: I25.10 Atherosclerotic heart disease of native coronary artery without angina pectoris (principal); I50.22 Chronic systolic (congestive) heart failure
CPT/HCPCS: 78452; 93017; A9502; J2785

== ENCOUNTER 2020-02-19 09:52 | Day surgery (SDC) | payer MEDICAID ==
[~2020-02-19] VITALS: Ht 167.6 cm; Wt 65.9 kg
[~2020-02-19 09:52] MED LIST changes: -LISI-424 PO; -REGADENOSON 0.4 MG/5 ML SYRINGE ONE
[2020-02-19 10:19] VITALS: BP 148/94
[2020-02-19] MEDS ORDERED: SODIUM BICARBONATE 8.4% 150 MEQ in DEXTROSE 5% 1,000 ML IV SCH (10:30)
[2020-02-19] MEDS ORDERED: LISI-424 PO (10:36)
[2020-02-19 10:45] LABS: BASOPHILS # (AUTO) 0.03 x10^3/uL (0-0.1); BASOPHILS % (AUTO) 1 % (0-1); EOSINOPHILS # (AUTO) 0.18 x10^3/uL (0-0.4); EOSINOPHILS % (AUTO) 4 % (1-7); LYMPHOCYTES % (AUTO) 20 % (22-44); MD NO; MEAN CORPUSCULAR HEMOGLOBIN 26.9 pg (27.5-34.5); MEAN CORPUSCULAR HGB CONC 33.6 g/dL (33.2-36.2); MEAN PLATELET VOLUME 8.1 fL (7.4-10.4); MONOCYTES # (AUTO) 0.46 x10^3/uL (0.2-0.8); MONOCYTES % (AUTO) 9 % (2-9); NEUTROPHILS # (AUTO) 3.44 x10^3/uL (1.8-6.8); NEUTROPHILS % (AUTO) 67 % (42-75); PLATELET COUNT 158 x10^3/uL (130-400); RED BLOOD COUNT 5.23 x10^6/uL (4.38-5.82); RED CELL DISTRIBUTION WIDTH 18.3 % (9.4-14.8)
[2020-02-19] MEDS ORDERED: HEPARIN 1,000 UNITS/ML, 10ML ONE (10:54)
[2020-02-19] MEDS ORDERED: VERAPAMIL 2.5 MG/ML, 2ML ONE (10:54)
[2020-02-19] MEDS ORDERED: MIDAZOLAM 1 MG/ML, 5ML ONE (10:54)
[2020-02-19] MEDS ORDERED: FENTANYL PF 100 MCG/2ML ONE (10:54)
[2020-02-19] MEDS ORDERED: BIVALIRUDIN 250 MG ONE (10:54)
[2020-02-19] MEDS ORDERED: LIDOCAINE-MPF 1%, 5ML ONE (10:54)
[2020-02-19] MEDS ORDERED: TICAGRELOR 90 MG TABLET ONE (10:54)
[2020-02-19 10:55] LABS: ANION GAP 8 mmol/L (5-15); CALCIUM 8.9 mg/dL (8.5-10.1); CHLORIDE 108 mmol/L (98-107)
== END 2020-02-19 13:40 | disposition home or self-care (01) ==
LOC: CACL 09:52
PROVIDERS: ATTEND Internal Medicine Cardiovascular Disease
DX: I42.0 Dilated cardiomyopathy (principal); I25.119 Atherosclerotic heart disease of native coronary artery with unspecified angina pectoris; I11.0 Hypertensive heart disease with heart failure; I50.22 Chronic systolic (congestive) heart failure; E78.5 Hyperlipidemia, unspecified; E78.00 Pure hypercholesterolemia, unspecified; F17.210 Nicotine dependence, cigarettes, uncomplicated; F15.11 Other stimulant abuse, in remission; Z79.82 Long term (current) use of aspirin; Z79.899 Other long term (current) drug therapy; Z87.01 Personal history of pneumonia (recurrent); Z82.49 Family history of ischemic heart disease and other diseases of the circulatory system; Z83.3 Family history of diabetes mellitus
CPT/HCPCS: 36415; 80048; 85025; 93458; 99156; C1769; C1894; J1644; J2250; J3010; J7070; Q9967; J0583

== ENCOUNTER 2020-10-24 19:53 | Inpatient (IN) | payer MEDICAID ==
[~2020-10-24] VITALS: Ht 167.6 cm; Wt 70.5 kg
[~2020-10-24 19:53] MED LIST changes: +LISI-606 PO; -OXYC5TAB3 PO; +OXYC5TAB98 PO
--- NOTE | 2020-10-24 20:04 | NUR ---
LUIS RN: EKG COMPLETED IN TRIAGE
--- NOTE | 2020-10-24 20:21 | NUR ---
ASSUMED CARE OF PATIENT. PATIENT REPORTS LEFT SIDED CHEST PAIN THAT COMES AND GOES. PT ALSO C/O EPIGASTRIC ABD PAIN, "IT FEELS LIKE I HAVE TRAPPED GAS." EKG DONE. HIMS CODER ON. NSR NOTED. PT REPORTS HE DID METH YESTERDAY. VS STABLE. NO ACUTE DISTRESS NOTED. LAB IN ROOM. CALL LIGHT IN PLACE. WILL CONTINUE TO MONITOR.
[2020-10-24] MEDS ORDERED: ASPIRIN 325 MG TABLET PO ONE (20:30)
[2020-10-24 20:31] LABS: BASOPHILS % (AUTO) 1 % (0-1); EOSINOPHILS % (AUTO) 6 % (1-7); LYMPHOCYTES % (AUTO) 12 % (22-44); MEAN CORPUSCULAR HEMOGLOBIN 22.8 pg (27.5-34.5); MEAN CORPUSCULAR HGB CONC 33.1 g/dL (33.2-36.2); MEAN PLATELET VOLUME 8.6 fL (7.4-10.4); MONOCYTES % (AUTO) 9 % (2-9); NEUTROPHILS % (AUTO) 73 % (42-75); PLATELET COUNT 93 x10^3/uL (130-400); RED BLOOD COUNT 5.17 x10^6/uL (4.38-5.82); RED CELL DISTRIBUTION WIDTH 23.9 % (9.4-14.8)
[2020-10-24 20:33] LABS: MD MORPH REVIEW ONLY
[2020-10-24 20:42] LABS: ALBUMIN 3.2 g/dL (3.4-5.0); ANION GAP 7 mmol/L (5-15); CALCIUM 8.3 mg/dL (8.5-10.1); CHLORIDE 108 mmol/L (98-107)
[2020-10-24 20:48] LABS: ALANINE AMINOTRANSFERASE 27 U/L (12-78); ALKALINE PHOSPHATASE 180 U/L (45-117); BILIRUBIN,TOTAL 0.8 mg/dL (0.2-1.0); CREATININE 1.27 mg/dL (0.7-1.3); TROPONIN I 0.049 ng/mL (0.000-0.045)
--- NOTE | 2020-10-24 20:50 | NUR ---
SHAYY (FATHER) [phone] CALLED. REQUESTING UPDATE
[2020-10-24 20:51] LABS: ANISOCYTOSIS 1+; MICROCYTOSIS 2+; OVALOCYTES 1+
[2020-10-24 20:52] LABS: HYPOCHROMIA 1+
[2020-10-24 20:53] LABS: POLYCHROMASIA 1+
[2020-10-24 20:54] LABS: <PLATELET ESTIMATE> DECREASED; <PLT MORPHOLOGY> NORMAL PLT MORPH
[2020-10-24] MEDS ORDERED: ASPIRIN 325 MG TABLET ONE (21:00)
--- NOTE | 2020-10-24 21:09 | NUR ---
DR ZARAGOZA IN ROOM. PROVIDER AWARE OF VS
--- NOTE | 2020-10-24 22:02 | NUR ---
PT USED BATHROOM. PT REPORTS HE IS FEELING BLOATED WITH GAS. DR MILA HARVEY OF VS. CARIDAC MONITOR ON. NSR NOTED. WILL CONTINUE TO MONITOR.
[2020-10-24] MEDS ORDERED: MAALOX/HYOSCYAMINE/LIDOCAINE 45 ML BTL ONE (22:17)
[2020-10-24] MEDS ORDERED: MAALOX/HYOSCYAMINE/LIDOCAINE 45 ML BTL PO ONE (22:30)
[2020-10-24] MEDS ORDERED: ONDANSETRON 2MG/ML, 2ML IVPush PRN (23:00)
[2020-10-24] MEDS ORDERED: MORPHINE SULFATE 4 MG/ML, 1ML IVPush PRN (23:00)
[2020-10-24] MEDS ORDERED: MORPHINE SULFATE 4 MG/ML, 1ML ONE (23:02)
--- NOTE | 2020-10-24 23:08 | NUR ---
PT RESTING IN ROOM. ART FRAMING MANAGER ON. NSR NOTED. CALL LIGHT IN PLACE. WILL CONTINUE TO MONITOR.
--- NOTE | 2020-10-24 23:11 | NUR ---
DR ZARAGOZA AWARE OF BLOOD PRESSURE
[2020-10-24] MEDS ORDERED: LABETALOL 5MG/ML, 20ML ONE (23:12)
--- NOTE | 2020-10-24 23:21 | NUR ---
DR TAY IN ROOM
[2020-10-24] MEDS ORDERED: LABETALOL 5MG/ML, 20ML IVPush ONE (23:30)
--- NOTE | 2020-10-24 23:33 | NUR ---
PT REFUSED ZOFRAN
--- NOTE | 2020-10-24 23:44 | NUR ---
CALLED DR TAY. PROVIDER AWARE OF BLOOD PRESSURE. PROVIDER OKAY WITH PATIENT GOING TO TELE FLOOR.
[2020-10-25] VITALS (7 sets, daily range): BP systolic 144–185; BP diastolic 82–123
[2020-10-25] MEDS ORDERED: NITROGLYCERIN 0.4 MG/SPRAY SL PRN
[2020-10-25] MEDS ORDERED: ACETAMINOPHEN 325 MG TABLET PO PRN
[2020-10-25] MEDS ORDERED: hydrALAzine 20 MG/ML, 1ML IVPush PRN
[2020-10-25] MEDS ORDERED: MELATONIN 5 MG TABLET PO PRN
[2020-10-25] MEDS ORDERED: LABETALOL 5MG/ML, 20ML IVPush PRN
[2020-10-25] MEDS ORDERED: NITROGLYCERIN 0.4 MG BOTTLE (25 TABS) SL PRN
[2020-10-25] MEDS ORDERED: ONDANSETRON 2MG/ML, 2ML IVPush PRN
[2020-10-25] MEDS ORDERED: HYDROcodone/APAP 5/325 TABLET PO PRN
[2020-10-25] MEDS: CLONIDINE MC SCH ×3 (00:30→16:30)
[2020-10-25] MEDS: HEPARIN 5,000 UNITS/ML, 1ML SQ SCH ×3 (00:37→18:36)
[2020-10-25 01:00] LABS: TROPONIN I 0.051 ng/mL (0.000-0.045)
[2020-10-25 05:31] LABS: BASOPHILS % (AUTO) 1 % (0-1); EOSINOPHILS % (AUTO) 7 % (1-7); LYMPHOCYTES % (AUTO) 15 % (22-44); MEAN CORPUSCULAR HEMOGLOBIN 22.7 pg (27.5-34.5); MEAN CORPUSCULAR HGB CONC 32.3 g/dL (33.2-36.2); MEAN PLATELET VOLUME 8.8 fL (7.4-10.4); MONOCYTES % (AUTO) 12 % (2-9); NEUTROPHILS % (AUTO) 65 % (42-75); PLATELET COUNT 87 x10^3/uL (130-400); RED BLOOD COUNT 5.04 x10^6/uL (4.38-5.82); RED CELL DISTRIBUTION WIDTH 23.7 % (9.4-14.8)
[2020-10-25 05:34] LABS: MD NO
[2020-10-25 05:48] LABS: CHLORIDE 108 mmol/L (98-107)
[2020-10-25 06:00] LABS: ALANINE AMINOTRANSFERASE 24 U/L (12-78); ALBUMIN 2.9 g/dL (3.4-5.0); ALKALINE PHOSPHATASE 152 U/L (45-117); ANION GAP 6 mmol/L (5-15); BILIRUBIN,TOTAL 0.8 mg/dL (0.2-1.0); CALCIUM 8.2 mg/dL (8.5-10.1); CREATININE 1.39 mg/dL (0.7-1.3); TOTAL PROTEIN 7.4 g/dL (6.4-8.2)
[2020-10-25] MEDS: CARVEDILOL 12.5 MG TABLET PO SCH ×2 (09:13→21:07)
[2020-10-25] MEDS: ASPIRIN 81 MG TABLET EC PO SCH (09:13)
[2020-10-25] MEDS: LISINOPRIL 5 MG TABLET PO SCH (09:13)
[2020-10-25 10:35] LABS: MICROSCOPIC AUTO
[2020-10-25 10:44] LABS: AMPHETAMINE SCREEN, URINE Positive (Negative); BARBITURATE SCREEN, URINE Negative (Negative); BENZODIAZEPINE SCREEN, URINE Negative (Negative); CANNABINOID SCREEN, URINE Positive (Negative); COCAINE SCREEN, URINE Negative (Negative); METHADONE SCREEN, URINE Negative (Negative); OPIATE SCREEN, URINE Positive (Negative)
[2020-10-25] MEDS ORDERED: POTASSIUM CHLORIDE 10% 40 MEQ/30 ML UDC PO ONE (13:30)
[2020-10-25] MEDS ORDERED: POTASSIUM CHLORIDE 20 MEQ TAB.ER.PRT PO ONE (14:00)
[2020-10-25] MEDS ORDERED: SOFO1TAB3 PO (15:48)
[2020-10-26] MEDS: CLONIDINE MC SCH ×2 (00:30→07:41)
[2020-10-26 01:02] VITALS: BP 160/88
[2020-10-26] MEDS: HEPARIN 5,000 UNITS/ML, 1ML SQ SCH ×2 (01:09→08:19)
[2020-10-26 05:30] LABS: BASOPHILS % (AUTO) 1 % (0-1); EOSINOPHILS % (AUTO) 8 % (1-7); LYMPHOCYTES % (AUTO) 16 % (22-44); MEAN CORPUSCULAR HEMOGLOBIN 23.1 pg (27.5-34.5); MEAN CORPUSCULAR HGB CONC 32.8 g/dL (33.2-36.2); MONOCYTES % (AUTO) 9 % (2-9); NEUTROPHILS % (AUTO) 67 % (42-75); PLATELET COUNT 91 x10^3/uL (130-400); RED CELL DISTRIBUTION WIDTH 23.3 % (9.4-14.8)
[2020-10-26 05:32] LABS: CHLORIDE 109 mmol/L (98-107)
[2020-10-26 05:43] LABS: ALANINE AMINOTRANSFERASE 21 U/L (12-78); ALBUMIN 2.8 g/dL (3.4-5.0); ALKALINE PHOSPHATASE 146 U/L (45-117); ANION GAP 4 mmol/L (5-15); BILIRUBIN,TOTAL 0.5 mg/dL (0.2-1.0); CALCIUM 8.3 mg/dL (8.5-10.1); CREATININE 1.34 mg/dL (0.7-1.3); TOTAL PROTEIN 7.1 g/dL (6.4-8.2)
[2020-10-26 06:16] LABS: MD SCAN
[2020-10-26 08:15] VITALS: BP 177/91
[2020-10-26] MEDS: CARVEDILOL 12.5 MG TABLET PO SCH (08:16)
[2020-10-26] MEDS: LISINOPRIL 5 MG TABLET PO SCH (08:18)
[2020-10-26] MEDS: ASPIRIN 81 MG TABLET EC PO SCH (08:19)
[2020-10-26 09:00] VITALS: BP 165/94
== END 2020-10-26 14:00 | disposition home or self-care (01) | DRG 281 ==
LOC: ED 20:23 → EDIP 23:15 → 5SO 10-25 → DCLOUNGE 10-26 13:51
PROVIDERS: ADMIT Internal Medicine; ATTEND Internal Medicine
DX: I21.A1 Myocardial infarction type 2 (principal); I47.1 Supraventricular tachycardia; N17.9 Acute kidney failure, unspecified; I25.10 Atherosclerotic heart disease of native coronary artery without angina pectoris; I27.20 Pulmonary hypertension, unspecified; D50.9 Iron deficiency anemia, unspecified; D69.6 Thrombocytopenia, unspecified; E78.5 Hyperlipidemia, unspecified; F15.10 Other stimulant abuse, uncomplicated; F17.200 Nicotine dependence, unspecified, uncomplicated; I11.0 Hypertensive heart disease with heart failure; I35.9 Nonrheumatic aortic valve disorder, unspecified; I50.9 Heart failure, unspecified; I16.0 Hypertensive urgency; Z95.5 Presence of coronary angioplasty implant and graft; I25.2 Old myocardial infarction; Z86.73 Personal history of transient ischemic attack (TIA), and cerebral infarction without residual deficits; Z91.19 Patient's noncompliance with other medical treatment and regimen; Z91.81 History of falling; R61 Generalized hyperhidrosis
CPT/HCPCS: 36415; 71045; 80053; 80307; 81001; 82550; 83540; 83550; 83735; 83880; 84100; 84436; 84443; 84481; 84484; 85025; 93005; 93306; 93356; 96374; 96375; 99285; G0378; J1644; J0360; J2270

== ENCOUNTER 2021-03-11 14:44 | Emergency (ER) | payer MEDICAID ==
[~2021-03-11] VITALS: Ht 167.6 cm; Wt 66.0 kg
[~2021-03-11 14:44] MED LIST changes: +SOFO1TAB3 PO
--- NOTE | 2021-03-11 15:24 | NUR ---
PT BIB FRIEND VIA POV. PER PT "MY STOMACH, I HAVENT BEEN TO THE BR IN 4-5 DAYS. MY LIVER IS BAD, MY BLOOD PRESSURE IS RAISING." PT'S ABD NOTED TO BE ROUND AND FIRM. PT RESTING IN GURNEY, MONTIORING IN PLACE, EKG DONE, NADN AT THIS TIME, WCTM.
[2021-03-11 15:32] LABS: BASOPHILS % (AUTO) 1 % (0-1); EOSINOPHILS % (AUTO) 2 % (1-7); LYMPHOCYTES % (AUTO) 9 % (22-44); MEAN CORPUSCULAR HEMOGLOBIN 24.5 pg (27.5-34.5); MEAN CORPUSCULAR HGB CONC 32.2 g/dL (33.2-36.2); MEAN PLATELET VOLUME 8.4 fL (7.4-10.4); MONOCYTES % (AUTO) 7 % (2-9); NEUTROPHILS % (AUTO) 81 % (42-75); PLATELET COUNT 144 x10^3/uL (130-400); RED BLOOD COUNT 5.32 x10^6/uL (4.38-5.82); RED CELL DISTRIBUTION WIDTH 20.5 % (9.4-14.8)
[2021-03-11 15:45] LABS: ALANINE AMINOTRANSFERASE 32 U/L (12-78); ALBUMIN 2.9 g/dL (3.4-5.0); ANION GAP 7 mmol/L (5-15); CALCIUM 8.6 mg/dL (8.5-10.1); CHLORIDE 110 mmol/L (98-107); CREATININE 1.35 mg/dL (0.7-1.3)
[2021-03-11 15:47] LABS: ALKALINE PHOSPHATASE 211 U/L (45-117); TOTAL PROTEIN 8.5 g/dL (6.4-8.2)
[2021-03-11 16:02] LABS: ANISOCYTOSIS 1+; MICROCYTOSIS 1+; POLYCHROMASIA 1+
[2021-03-11 16:04] LABS: <PLATELET ESTIMATE> ADEQUATE; <PLT MORPHOLOGY> NORMAL PLT MORPH
--- NOTE | 2021-03-11 17:35 | NUR ---
PT REPORTS "I HAD A SOFT BM IN THE RESTROOM". PT AMBULATED TO AND FROM RESTROOM SLOW BUT STEADY.
[2021-03-11] MEDS ORDERED: LIDOCAINE 1%, 10ML ONE (19:02)
--- NOTE | 2021-03-11 19:05 | NUR ---
PT TO IR FOR PARACENTESIS AT THIS TIME.
[2021-03-11 20:25] VITALS: BP 171/109
--- NOTE | 2021-03-11 20:30 | NUR ---
PT BACK FROM IR. PT ABD NOTABLY LESS DISTENDED AND FIRM. PT REPORTS FEELING MUCH BETTER. EDMD AT BEDSIDE FOR RE EVAL.
--- NOTE | 2021-03-11 20:41 | NUR ---
PT AND FAMILY MEMBER VERBALIZED UNDERSTANDING OF DISCHARGE INSTRUCTION AND EDUCATION.
== END 2021-03-11 20:42 | disposition home or self-care (01) ==
LOC: ED 16:47
DX: K70.31 Alcoholic cirrhosis of liver with ascites (principal); I11.0 Hypertensive heart disease with heart failure; I50.9 Heart failure, unspecified; I25.2 Old myocardial infarction; Z87.891 Personal history of nicotine dependence; Z86.19 Personal history of other infectious and parasitic diseases
CPT/HCPCS: 36415; 49083; 74022; 74176; 80053; 83690; 85025; 93005; 99285; J3490

== ENCOUNTER 2021-03-15 19:22 | Inpatient (IN) | payer MEDICAID ==
[~2021-03-15] VITALS: Ht 167.6 cm; Wt 61.6 kg
--- NOTE | 2021-03-15 19:32 | NUR ---
BIB [facility] FROM HOME FOR ABD PAIN AND SOB DT ABD DISTENTION. PARACENTESIS 2 DAYS AGO. NATURAL REM[facility] CONSULTANT [facility]: PIV RFA 20 PT MORE COMFORTABLE SITTING EDGE OF BED. PT RAPID SHALLOW BREATHING. PT HELPED TO SLOW DEEP BREATHE. PT CONNECTED TO ALL MONITORING. CALL LIGHT IN REACH. AWAITING ORDERS.
[2021-03-15] MEDS ORDERED: ASPIRIN 81 MG TABLET CHEW ONE ×2 (19:48→19:52)
[2021-03-15] MEDS ORDERED: FUROSEMIDE 40 MG/4 ML ONE (19:48)
--- NOTE | 2021-03-15 19:55 | NUR ---
MEDS ADMIN PER SEP.
[2021-03-15] MEDS ORDERED: SODIUM CHLORIDE FLUSH 10ML SYR IVF ONE (20:00)
[2021-03-15] MEDS ORDERED: FUROSEMIDE 40 MG/4 ML IVPush ONE (20:00)
[2021-03-15] MEDS ORDERED: ASPIRIN 81 MG TABLET CHEW PO ONE (20:00)
[2021-03-15] MEDS ORDERED: NITROGLYCERIN/D5W PMX 250 ML IV PRN (20:00)
--- NOTE | 2021-03-15 20:05 | NUR ---
PT TRANSFERRED TO TRAUMA ROOM FOR NITRO DRIP. REPORT GIVEN TO FARRUKH ATKINSON. TRANSFER OF CARE.
[2021-03-15] MEDS ORDERED: NITROGLYCERIN/D5W PMX 250 ML ONE (20:06)
[2021-03-15 20:12] LABS: BASOPHILS % (AUTO) 1 % (0-1); EOSINOPHILS % (AUTO) 4 % (1-7); LYMPHOCYTES % (AUTO) 9 % (22-44); MEAN CORPUSCULAR HEMOGLOBIN 24.7 pg (27.5-34.5); MEAN CORPUSCULAR HGB CONC 32.2 g/dL (33.2-36.2); MEAN PLATELET VOLUME 8.7 fL (7.4-10.4); MONOCYTES % (AUTO) 7 % (2-9); NEUTROPHILS % (AUTO) 80 % (42-75); PLATELET COUNT 149 x10^3/uL (130-400); RED BLOOD COUNT 4.83 x10^6/uL (4.38-5.82); RED CELL DISTRIBUTION WIDTH 21.2 % (9.4-14.8)
--- NOTE | 2021-03-15 20:14 | NUR ---
IST CONTACT C PT. MOVED TO TR3, PT ASSISTED TO EDGE OF BED TO FACILITATE POC & WORK OF BREATHING. PT HAS +1-2 B/L PEDAL EDEMA. PT STATES HE HAD PARACENTESIS 2 DAYS AGO TO 1ST TIME. AND SINCE THEN HIS ABD HAS BECOME MORE DISTENDED & INCREASED WORK OF BREATHING. PT IS HTN. STARTED ON NTG GTT. PLACED ON 2L NC. ON ALL MONITORS. CALL IGHT INREACH. WILL CTM. DENIES ANY NEEDS AT THIS TIME, EXCEPT SOMETHING TO EAT.. WILL CTM.
[2021-03-15 20:18] LABS: ALANINE AMINOTRANSFERASE 30 U/L (12-78); ALBUMIN 2.6 g/dL (3.4-5.0); ANION GAP 7 mmol/L (5-15); CALCIUM 8.3 mg/dL (8.5-10.1); CHLORIDE 111 mmol/L (98-107); CREATININE 1.39 mg/dL (0.7-1.3)
[2021-03-15] MEDS ORDERED: LIDOCAINE 1%, 10ML ONE (20:18)
[2021-03-15 20:35] LABS: ALKALINE PHOSPHATASE 209 U/L (45-117); BILIRUBIN,TOTAL 1.8 mg/dL (0.2-1.0); TOTAL PROTEIN 7.7 g/dL (6.4-8.2); TROPONIN I 0.087 ng/mL (0.000-0.045)
[2021-03-15 20:38] LABS: INTERNATIONAL NORMALIZED RATIO 1.15 (0.93-1.1); PROTHROMBIN TIME 12.2 Seconds (9.6-11.5)
--- NOTE | 2021-03-15 20:48 | NUR ---
PT REMAINS IN IR.
--- NOTE | 2021-03-15 20:58 | NUR ---
PT BACK FROM IR. STATES THEY REMOVED 2.5 BOTTLES. MD AT BS TO INCREASE NTG GTT TO 30MCG. INFUSING WELL ON PUMP. WILL CTM.
--- NOTE | 2021-03-15 21:02 | NUR ---
REPORT RECEIVED FROM FARRUKH ATKINSON. PT RESTING ON [place] W/ CALL LIGHT IN REACH AND SIDE RAILS UPX2. RESP EVEN AND UNLABORED, WILLIAM.
--- NOTE | 2021-03-15 21:20 | NUR ---
PT PROVIDED W/ VANIA AND FRUIT, OK PER .
[2021-03-15] MEDS ORDERED: hydrALAzine 20 MG/ML, 1ML ONE (21:36)
[2021-03-15] MEDS ORDERED: hydrALAzine 20 MG/ML, 1ML IV ONE (22:00)
--- NOTE | 2021-03-15 22:52 | NUR ---
PT RESTING ON GURNEY W/ CALL LIGHT IN REACH AND SIDE RAILS UPX2. PROVIDED W/ PILLOW AND WARM BLANKET FOR COMFORT. HOSPITAL BED REQUESTED. RESP EVEN AND UNLABORED, NADN. AWAITING ADMIT.
--- NOTE | 2021-03-15 23:45 | NUR ---
PT TRANSFERED TO ICU BED W/O INCIDENT. PT STATES "IT FEELS LIKE THE FLUID IS BUILDING UP ON MY HEART AGAIN". PT TACHYPNEIC, HYPERTENSIVE. AWAITING HOSPITALIST EVAL AND TRANSFER TO ICU.
[2021-03-15] MEDS ORDERED: ACETAMINOPHEN 500 MG TABLET ONE (23:53)
--- NOTE | 2021-03-15 23:56 | NUR ---
VERBAL ORDER FROM HOSPITALIST FOR 500MG TYLENOL Q6H PRN HEADACHE.
[2021-03-16] MEDS ORDERED: ACETAMINOPHEN 500 MG TABLET PO PRN
--- NOTE | 2021-03-16 00:24 | NUR ---
PT SITTING UP IN CHAIR AT BEDSIDE.
--- NOTE | 2021-03-16 00:42 | NUR ---
8 BEAT RUN OF VTACH OBSERVED ON MONITOR, WILL NOTIFY HOSPITALIST. CLINICAL SAFETY SPECIALIST AT BEDSIDE FOR EKG.
--- NOTE | 2021-03-16 01:14 | NUR ---
PHONE CALL RETURNED FROM . VERBAL ORDER FOR STAT MAG, STATES OK TO USE INITIAL DRAW.
--- NOTE | 2021-03-16 01:54 | NUR ---
REPORT TO JOJO RIDER PT READY FOR TRANSPORT AT THIS TIME. Addendum: 03/16/21 at 0205 by MANUELA REPORT TO XIOMARA RIDER PT READY FOR TRANSPORT AT THIS TIME.
[2021-03-16] MEDS ORDERED: NITROGLYCERIN 0.4 MG/SPRAY SL PRN (02:00)
[2021-03-16] MEDS ORDERED: ACETAMINOPHEN 650 MG/20.3 ML UDC PO PRN (02:00)
[2021-03-16] MEDS ORDERED: ONDANSETRON 2MG/ML, 2ML IV PRN (02:00)
[2021-03-16] MEDS ORDERED: NITROGLYCERIN/D5W PMX 250 ML IV PRN (02:00)
[2021-03-16] MEDS ORDERED: DIPHENHYDRAMINE 25 MG CAPSULE PO PRN (02:00)
[2021-03-16] MEDS ORDERED: LABETALOL 5MG/ML, 20ML IVPush PRN (02:00)
[2021-03-16] MEDS ORDERED: MAGNESIUM SULFATE 2 GM in DEXTROSE 5% 100 ML IV ONE (02:00)
[2021-03-16] MEDS ORDERED: morphine SULFATE 10 MG/ML, 1ML IVPush PRN (02:00)
[2021-03-16] MEDS ORDERED: NITROGLYCERIN 0.4 MG BOTTLE (25 TABS) SL PRN (02:00)
[2021-03-16] MEDS ORDERED: MAGNESIUM SULFATE PMX 2GM/50ML 50 ML IVPB ONE (02:30)
[2021-03-16] MEDS: ENOXAPARIN 40 MG/0.4 ML SQ SCH (02:39)
[2021-03-16 02:48] VITALS: BP 139/88
[2021-03-16 03:12] LABS: BASOPHILS % (AUTO) 1 % (0-1); EOSINOPHILS % (AUTO) 4 % (1-7); LYMPHOCYTES % (AUTO) 9 % (22-44); MEAN CORPUSCULAR HEMOGLOBIN 24.9 pg (27.5-34.5); MEAN CORPUSCULAR HGB CONC 32.9 g/dL (33.2-36.2); MEAN PLATELET VOLUME 8.4 fL (7.4-10.4); MONOCYTES % (AUTO) 9 % (2-9); NEUTROPHILS % (AUTO) 77 % (42-75); PLATELET COUNT 110 x10^3/uL (130-400); RED BLOOD COUNT 4.24 x10^6/uL (4.38-5.82); RED CELL DISTRIBUTION WIDTH 20.4 % (9.4-14.8)
[2021-03-16 03:23] LABS: ALANINE AMINOTRANSFERASE 26 U/L (12-78); ALBUMIN 2.3 g/dL (3.4-5.0); ANION GAP 7 mmol/L (5-15); CALCIUM 7.9 mg/dL (8.5-10.1); CHLORIDE 108 mmol/L (98-107); CREATININE 1.39 mg/dL (0.7-1.3)
[2021-03-16 03:33] LABS: ALKALINE PHOSPHATASE 183 U/L (45-117); BILIRUBIN,TOTAL 1.5 mg/dL (0.2-1.0); TOTAL PROTEIN 6.8 g/dL (6.4-8.2)
[2021-03-16] MEDS: ASPIRIN 81 MG TABLET EC PO SCH (05:44)
[2021-03-16] MEDS ORDERED: CLON0.2T PO (06:20)
[2021-03-16] MEDS ORDERED: SPIR25TA5 PO (06:20)
[2021-03-16] MEDS ORDERED: SACU1TAB7 PO (06:20)
[2021-03-16] MEDS ORDERED: OMEP-110 PO (06:20)
[2021-03-16] MEDS ORDERED: ATOR-2 PO (06:20)
[2021-03-16] MEDS ORDERED: CLOP75TA PO (06:20)
[2021-03-16] MEDS ORDERED: AMLO-211 PO (06:20)
[2021-03-16] MEDS ORDERED: SENN-190 PO (06:20)
[2021-03-16 08:59] LABS: TROPONIN I 0.089 ng/mL (0.000-0.045)
[2021-03-16] MEDS: DOCUSATE 100 MG CAPSULE PO SCH (09:00)
[2021-03-16] MEDS: POTASSIUM CHLORIDE 20 MEQ TAB.ER.PRT PO SCH (10:19)
[2021-03-16] MEDS: FUROSEMIDE 40 MG/4 ML IVPush SCH ×2 (10:19→21:32)
[2021-03-16] MEDS ORDERED: MAGNESIUM SULFATE PMX 2GM/50ML 50 ML IV ONE (13:30)
[2021-03-16] MEDS ORDERED: AMLODIPINE 10 MG TAB ONE (13:37)
[2021-03-16] MEDS: AMLODIPINE 10 MG TAB PO SCH (13:38)
[2021-03-16 21:30] VITALS: BP 151/89
[2021-03-16] MEDS: CARVEDILOL 12.5 MG TABLET PO SCH (21:31)
[2021-03-16] MEDS: ATORVASTATIN 80 MG TABLET PO SCH (21:31)
[2021-03-17 00:30] VITALS: BP 143/95
[2021-03-17 05:43] LABS: BASOPHILS % (AUTO) 1 % (0-1); EOSINOPHILS % (AUTO) 4 % (1-7); LYMPHOCYTES % (AUTO) 10 % (22-44); MEAN CORPUSCULAR HEMOGLOBIN 24.6 pg (27.5-34.5); MEAN CORPUSCULAR HGB CONC 32.5 g/dL (33.2-36.2); MEAN PLATELET VOLUME 8.9 fL (7.4-10.4); MONOCYTES % (AUTO) 8 % (2-9); NEUTROPHILS % (AUTO) 77 % (42-75); PLATELET COUNT 124 x10^3/uL (130-400); RED BLOOD COUNT 4.72 x10^6/uL (4.38-5.82); RED CELL DISTRIBUTION WIDTH 20.8 % (9.4-14.8)
[2021-03-17 05:55] LABS: ALANINE AMINOTRANSFERASE 24 U/L (12-78); ALBUMIN 2.4 g/dL (3.4-5.0); ANION GAP 8 mmol/L (5-15); CHLORIDE 103 mmol/L (98-107); CREATININE 1.32 mg/dL (0.7-1.3)
[2021-03-17 05:57] LABS: ALKALINE PHOSPHATASE 180 U/L (45-117); TOTAL PROTEIN 6.8 g/dL (6.4-8.2)
[2021-03-17] MEDS: ENOXAPARIN 40 MG/0.4 ML SQ SCH (06:01)
[2021-03-17] MEDS: ASPIRIN 81 MG TABLET EC PO SCH (06:01)
[2021-03-17 07:18] VITALS: BP 134/85
[2021-03-17] MEDS ORDERED: FUROSEMIDE 40 MG/4 ML IVPush SCH ×2 (07:30→17:00)
[2021-03-17] MEDS: POTASSIUM CHLORIDE 20 MEQ TAB.ER.PRT PO SCH (08:48)
[2021-03-17] MEDS: CARVEDILOL 12.5 MG TABLET PO SCH ×2 (08:48→22:06)
[2021-03-17] MEDS: OMEPRAZOLE 20 MG CAPSULE.DR PO SCH (08:48)
[2021-03-17] MEDS: CLOPIDOGREL 75 MG TABLET PO SCH (08:48)
[2021-03-17] MEDS: SPIRONOLACTONE 25 MG TABLET PO SCH (08:48)
[2021-03-17] MEDS: AMLODIPINE 10 MG TAB PO SCH (08:49)
[2021-03-17] MEDS: DOCUSATE 100 MG CAPSULE PO SCH (08:49)
[2021-03-17] MEDS: MAGNESIUM OXIDE 400 MG TABLET PO SCH (08:49)
[2021-03-17 13:27] VITALS: BP 125/82
[2021-03-17 13:41] LABS: AMPHETAMINE SCREEN, URINE Negative (Negative); BARBITURATE SCREEN, URINE Negative (Negative); BENZODIAZEPINE SCREEN, URINE Negative (Negative); CANNABINOID SCREEN, URINE Positive (Negative); COCAINE SCREEN, URINE Negative (Negative); METHADONE SCREEN, URINE Negative (Negative); OPIATE SCREEN, URINE Negative (Negative)
[2021-03-17 22:04] VITALS: BP 132/93
[2021-03-17] MEDS: ATORVASTATIN 80 MG TABLET PO SCH (22:06)
[2021-03-17] MEDS: SACUBITRIL/VALSARTAN 24MG-26MG TAB PO SCH (22:07)
[2021-03-18 02:16] VITALS: BP_SYST 90; BP_SYST 93; BP_DIAS 51; BP_DIAS 55
[2021-03-18] MEDS: ASPIRIN 81 MG TABLET EC PO SCH (06:25)
[2021-03-18] MEDS: ENOXAPARIN 40 MG/0.4 ML SQ SCH (06:25)
[2021-03-18 06:38] LABS: CALCIUM 8.1 mg/dL (8.5-10.1); CHLORIDE 102 mmol/L (98-107)
[2021-03-18 06:42] LABS: ANION GAP 9 mmol/L (5-15); CREATININE 1.53 mg/dL (0.7-1.3)
[2021-03-18 07:58] VITALS: BP 93/57
[2021-03-18] MEDS: DOCUSATE 100 MG CAPSULE PO SCH (08:23)
[2021-03-18] MEDS ORDERED: POTASSIUM CHLORIDE 20 MEQ TAB.ER.PRT PO ONE (08:30)
[2021-03-18] MEDS: OMEPRAZOLE 20 MG CAPSULE.DR PO SCH (09:08)
[2021-03-18] MEDS: AMLODIPINE 10 MG TAB PO SCH (09:08)
[2021-03-18] MEDS: SPIRONOLACTONE 25 MG TABLET PO SCH (09:08)
[2021-03-18] MEDS: SACUBITRIL/VALSARTAN 24MG-26MG TAB PO SCH (09:08)
[2021-03-18] MEDS: MAGNESIUM OXIDE 400 MG TABLET PO SCH (09:08)
[2021-03-18] MEDS: CARVEDILOL 12.5 MG TABLET PO SCH (09:08)
[2021-03-18] MEDS: CLOPIDOGREL 75 MG TABLET PO SCH (09:08)
[2021-03-18 12:46] VITALS: BP 99/67
== END 2021-03-18 15:57 | disposition home or self-care (01) | DRG 441 ==
LOC: ED 21:38 → EDIP 22:41 → CCU 03-16 02:17 → 5SO 03-16 18:43
PROVIDERS: ADMIT Internal Medicine; ATTEND Internal Medicine
PROC: 0W9G3ZZ Drainage of Peritoneal Cavity, Percutaneous Approach (ICD-10-PCS; principal; 2021-03-15)
DX: K72.00 Acute and subacute hepatic failure without coma (principal); G93.41 Metabolic encephalopathy; I21.A1 Myocardial infarction type 2; J96.01 Acute respiratory failure with hypoxia; N17.0 Acute kidney failure with tubular necrosis; I50.23 Acute on chronic systolic (congestive) heart failure; E87.1 Hypo-osmolality and hyponatremia; R18.8 Other ascites; I42.7 Cardiomyopathy due to drug and external agent; I11.0 Hypertensive heart disease with heart failure; B18.2 Chronic viral hepatitis C; D50.9 Iron deficiency anemia, unspecified; D69.59 Other secondary thrombocytopenia; E78.5 Hyperlipidemia, unspecified; E83.42 Hypomagnesemia; E83.51 Hypocalcemia; T43.625A Adverse effect of amphetamines, initial encounter; E88.09 Other disorders of plasma-protein metabolism, not elsewhere classified; K76.1 Chronic passive congestion of liver; F15.90 Other stimulant use, unspecified, uncomplicated; I25.10 Atherosclerotic heart disease of native coronary artery without angina pectoris; I27.20 Pulmonary hypertension, unspecified; K70.9 Alcoholic liver disease, unspecified; Z86.73 Personal history of transient ischemic attack (TIA), and cerebral infarction without residual deficits; Z87.891 Personal history of nicotine dependence; Z91.19 Patient's noncompliance with other medical treatment and regimen; Z95.5 Presence of coronary angioplasty implant and graft; Y92.89 Other specified places as the place of occurrence of the external cause; Z68.21 Body mass index [BMI] 21.0-21.9, adult
CPT/HCPCS: 36415; 96374; 99291; J3490; 49083; 71045; 80048; 80053; 80307; 83605; 83690; 83735; 83880; 84100; 84443; 84484; 85025; 85610; 87081; 88112; 88305; 93005; G0378; J1650; J1940; J0360; J3475; J7050

== ENCOUNTER 2021-03-23 12:06 | Inpatient (IN) | payer MEDICAID ==
[~2021-03-23] VITALS: Ht 167.6 cm; Wt 59.7 kg
[~2021-03-23 12:06] MED LIST changes: +AMLO-211 PO; +OMEP-110 PO; +SACU1TAB7 PO; +SENN-190 PO; +SPIR25TA5 PO
--- NOTE | 2021-03-23 12:20 | NUR ---
PT PLACED ON ALL ROOM MONITORING. SEE TRIAGE. FATHER AT BS. CALL LIGHT WITHIN REACH.
[2021-03-23] MEDS ORDERED: SODIUM CHLORIDE FLUSH 10ML SYR IVF ONE (12:30)
[2021-03-23] MEDS ORDERED: HYDROmorphone 1 MG/ML, 1ML INJ IV ONE (12:30)
[2021-03-23] MEDS ORDERED: LIDOCAINE 1%, 10ML ONE ×2 (12:36→13:34)
[2021-03-23] MEDS ORDERED: HYDROmorphone 2 MG/ML, 1ML ONE (12:48)
--- NOTE | 2021-03-23 12:55 | NUR ---
LABS DRAWN BY SPECIALIST MANAGERS. PT MEDICATED FOR 8/ ABD PAIN. PT STATES "I'M BLEEDING ALL OVER MY BOXERS". BOXERS AND SWEATPANTS REMOVED, SMALL AMOUNT OF DRIED BLOOD IN BOXER SHORTS OBSERVED, NO ACTIVE BLEEDING. CHUX PAD PLACED. WARM BLANKET PROVIDED.
--- NOTE | 2021-03-23 13:05 | NUR ---
PT TO IR.
[2021-03-23 13:07] LABS: BASOPHILS % (AUTO) 1 % (0-1); EOSINOPHILS % (AUTO) 5 % (1-7); LYMPHOCYTES % (AUTO) 9 % (22-44); MEAN CORPUSCULAR HEMOGLOBIN 24.3 pg (27.5-34.5); MEAN CORPUSCULAR HGB CONC 31.9 g/dL (33.2-36.2); MEAN PLATELET VOLUME 8.2 fL (7.4-10.4); MONOCYTES % (AUTO) 10 % (2-9); NEUTROPHILS % (AUTO) 76 % (42-75); PLATELET COUNT 171 x10^3/uL (130-400)
[2021-03-23 13:13] LABS: INTERNATIONAL NORMALIZED RATIO 1.07 (0.93-1.1); PROTHROMBIN TIME 11.4 Seconds (9.6-11.5)
[2021-03-23 13:15] LABS: ALANINE AMINOTRANSFERASE 30 U/L (12-78); ALBUMIN 2.4 g/dL (3.4-5.0); ANION GAP 4 mmol/L (5-15); CALCIUM 7.9 mg/dL (8.5-10.1); CHLORIDE 107 mmol/L (98-107)
[2021-03-23 13:17] LABS: ALKALINE PHOSPHATASE 188 U/L (45-117); BILIRUBIN,TOTAL 0.6 mg/dL (0.2-1.0); CREATININE 1.13 mg/dL (0.7-1.3); TOTAL PROTEIN 7.4 g/dL (6.4-8.2)
--- NOTE | 2021-03-23 14:23 | NUR ---
PT BACK FROM IR AND CT.
--- NOTE | 2021-03-23 14:33 | NUR ---
BREAK RN: PT RESTING ON WILLIAM BRENNAN. FAMILY AT BS. PT STATES HE IS UNABLE TO VOID AT THIS TIME FOR URINE SAMPLE. CALL LIGHT WITHIN REACH. BED IN LOWEST POSITION, BED RAILS UP X2.
[2021-03-23] MEDS ORDERED: OMNIPAQUE 350 MG/ML, 100ML BOTTLE ONE (14:43)
--- NOTE | 2021-03-23 14:54 | NUR ---
BREAK RN: ERP AT BS
--- NOTE | 2021-03-23 14:58 | NUR ---
REPORT FROM SOPHIA FUENTES RN
[2021-03-23] MEDS ORDERED: ONDANSETRON 2MG/ML, 2ML IVPush PRN (15:00)
[2021-03-23] MEDS ORDERED: MELATONIN 5 MG TABLET PO PRN (15:00)
[2021-03-23] MEDS ORDERED: CEFTRIAXONE 1,000 MG in DEXTROSE 5% 50 ML IVPB ONE (15:00)
[2021-03-23] MEDS ORDERED: ENALAPRILAT 1.25 MG/ML, 2ML IVPush PRN (15:00)
[2021-03-23] MEDS ORDERED: ACETAMINOPHEN 325 MG TABLET PO PRN (15:00)
[2021-03-23] MEDS ORDERED: HEPARIN 5,000 UNITS/ML, 1ML SQ SCH (15:00)
[2021-03-23] MEDS ORDERED: ONDANSETRON ODT 4 MG PO PRN (15:00)
--- NOTE | 2021-03-23 15:59 | NUR ---
ua collected and sent to lab. JOSÉ LUIS Mathias at bedside
[2021-03-23 16:11] LABS: MICROSCOPIC AUTO
--- NOTE | 2021-03-23 16:13 | NUR ---
report given to natalia vigil
[2021-03-23] MEDS ORDERED: GOLYTELY 4,000ML ORAL.SOL PO ONE (16:30)
[2021-03-23] MEDS: PANTOPRAZOLE 40 MG IV IVPush SCH (17:42)
[2021-03-23 19:13] VITALS: BP 138/70
[2021-03-23] MEDS: HYDROcodone/APAP 5/325 TABLET PO PRN (19:38)
[2021-03-23 19:53] VITALS: BP 133/78
[2021-03-23 22:27] VITALS: BP 162/86
[2021-03-24] MEDS: HYDROcodone/APAP 5/325 TABLET PO PRN ×2 (00:45→12:52)
[2021-03-24 00:56] VITALS: BP 147/82
[2021-03-24] MEDS: PANTOPRAZOLE 40 MG IV IVPush SCH ×2 (04:43→16:29)
[2021-03-24 05:48] LABS: BASOPHILS % (AUTO) 2 % (0-1); EOSINOPHILS % (AUTO) 11 % (1-7); LYMPHOCYTES % (AUTO) 15 % (22-44); MEAN CORPUSCULAR HEMOGLOBIN 24.1 pg (27.5-34.5); MEAN CORPUSCULAR HGB CONC 31.9 g/dL (33.2-36.2); MEAN PLATELET VOLUME 8.2 fL (7.4-10.4); MONOCYTES % (AUTO) 16 % (2-9); NEUTROPHILS % (AUTO) 57 % (42-75); PLATELET COUNT 127 x10^3/uL (130-400); RED BLOOD COUNT 4.01 x10^6/uL (4.38-5.82); RED CELL DISTRIBUTION WIDTH 19.3 % (9.4-14.8)
[2021-03-24 05:58] LABS: ALBUMIN 2.1 g/dL (3.4-5.0); ANION GAP 6 mmol/L (5-15); CHLORIDE 104 mmol/L (98-107)
[2021-03-24 06:01] LABS: ALANINE AMINOTRANSFERASE 26 U/L (12-78); ALKALINE PHOSPHATASE 150 U/L (45-117); BILIRUBIN,TOTAL 0.5 mg/dL (0.2-1.0); CREATININE 1.16 mg/dL (0.7-1.3); TOTAL PROTEIN 6.4 g/dL (6.4-8.2)
[2021-03-24 07:30] VITALS: BP 157/79
[2021-03-24] MEDS ORDERED: SACUBITRIL/VALSARTAN 24MG-26MG TAB PO SCH (09:00)
[2021-03-24] MEDS ORDERED: SPIRONOLACTONE 25 MG TABLET PO SCH (09:00)
[2021-03-24 11:10] VITALS: BP_SYST 140; BP_SYST 152; BP_DIAS 74; BP_DIAS 80
[2021-03-24] MEDS ORDERED: FUROSEMIDE 40 MG/4 ML IV ONE (14:00)
[2021-03-24 14:55] VITALS: BP 154/73
[2021-03-24] MEDS ORDERED: CHLORHEXIDINE 15 ML UDC ONE (15:00)
[2021-03-24] MEDS ORDERED: PROPOFOL 100 ML ONE (15:33)
[2021-03-24] MEDS ORDERED: FENTANYL PF 100 MCG/2ML IV PRN (16:30)
[2021-03-24] MEDS ORDERED: LABETALOL 5MG/ML, 20ML IV PRN (16:30)
[2021-03-24] MEDS ORDERED: EPHEDRINE 50 MG/ML, 1ML IVPush PRN (16:30)
[2021-03-24] MEDS ORDERED: DIAZEPAM 5 MG/ML, 2ML IVPush PRN (16:30)
[2021-03-24] MEDS ORDERED: morphine SULFATE 10 MG/ML, 1ML IVPush PRN (16:30)
[2021-03-24] MEDS ORDERED: EPHEDRINE 50 MG/ML, 1ML IM PRN (16:30)
[2021-03-24] MEDS ORDERED: DIPHENHYDRAMINE 50 MG/ML, 1ML IVPush PRN (16:30)
[2021-03-24] MEDS ORDERED: MEPERIDINE/PF 25MG/0.5ML IVPush PRN (16:30)
[2021-03-24] MEDS ORDERED: PROMETHAZINE 25 MG/ML, 1ML IVPush PRN (16:30)
[2021-03-24] MEDS ORDERED: ONDANSETRON 2MG/ML, 2ML IVPush PRN (16:30)
== END 2021-03-24 20:30 | disposition home or self-care (01) | DRG 432 ==
LOC: ED 14:00 → SUATTDRO 14:46 → INTOOBSV 16:59 → OBSVTOIN 16:59 → 4NE 16:59
PROVIDERS: ADMIT Hospitalist; ATTEND Hospitalist
PROC: 06L38CZ Occlusion of Esophageal Vein with Extraluminal Device, Via Natural or Artificial Opening Endoscopic (ICD-10-PCS; principal; 2021-03-24 16:00)
PROC: 0DBK8ZZ Excision of Ascending Colon, Via Natural or Artificial Opening Endoscopic (ICD-10-PCS; 2021-03-24 16:00)
DX: K70.31 Alcoholic cirrhosis of liver with ascites (principal); I85.11 Secondary esophageal varices with bleeding; K65.9 Peritonitis, unspecified; D62 Acute posthemorrhagic anemia; K76.6 Portal hypertension; F12.90 Cannabis use, unspecified, uncomplicated; F15.90 Other stimulant use, unspecified, uncomplicated; I11.0 Hypertensive heart disease with heart failure; I25.10 Atherosclerotic heart disease of native coronary artery without angina pectoris; I25.2 Old myocardial infarction; I50.9 Heart failure, unspecified; K70.9 Alcoholic liver disease, unspecified; Z85.05 Personal history of malignant neoplasm of liver; Z87.891 Personal history of nicotine dependence; Z91.19 Patient's noncompliance with other medical treatment and regimen; Z95.5 Presence of coronary angioplasty implant and graft; K63.5 Polyp of colon; B19.20 Unspecified viral hepatitis C without hepatic coma; K59.00 Constipation, unspecified; K64.2 Third degree hemorrhoids
CPT/HCPCS: 36415; 89051; 96365; 99291; J3490; 49083; 74177; 80053; 81001; 82140; 83605; 83690; 85025; 85610; 86850; 86900; 87040; 87070; 87205; 87635; 88305; 93005; G0378; J0696; J1170; J1940; J2704; Q9967; C9113

== ENCOUNTER 2021-03-30 15:55 | Outpatient (CLI) | payer MEDICAID ==
[2021-03-30] MEDS ORDERED: LIDOCAINE 1%, 10ML ONE (15:58)
[2021-04-13] MEDS ORDERED: ALPR1TAB2 PO (10:30)
[2021-04-14] MEDS ORDERED: ALPR1TAB2 PO (12:17)
== END 2021-03-30 23:59 | disposition home or self-care (01) ==
LOC: RAD 15:55
PROVIDERS: ATTEND Physician Assistant
DX: R18.8 Other ascites (principal); K74.69 Other cirrhosis of liver; C22.0 Liver cell carcinoma; I85.00 Esophageal varices without bleeding
CPT/HCPCS: 49083; J3490

== ENCOUNTER 2021-04-04 17:56 | Emergency (ER) | payer MEDICAID ==
[~2021-04-04] VITALS: Ht 167.6 cm; Wt 64.2 kg
[2021-04-04 19:33] LABS: BASOPHILS % (AUTO) 1 % (0-1); EOSINOPHILS % (AUTO) 6 % (1-7); LYMPHOCYTES % (AUTO) 11 % (22-44); MEAN CORPUSCULAR HEMOGLOBIN 23.3 pg (27.5-34.5); MEAN CORPUSCULAR HGB CONC 31.1 g/dL (33.2-36.2); MEAN PLATELET VOLUME 7.9 fL (7.4-10.4); MONOCYTES % (AUTO) 13 % (2-9); NEUTROPHILS % (AUTO) 69 % (42-75); PLATELET COUNT 170 x10^3/uL (130-400); RED CELL DISTRIBUTION WIDTH 18.5 % (9.4-14.8)
[2021-04-04 19:45] LABS: ALBUMIN 2.5 g/dL (3.4-5.0); ANION GAP 3 mmol/L (5-15); CALCIUM 8.2 mg/dL (8.5-10.1); CHLORIDE 109 mmol/L (98-107)
[2021-04-04 19:48] LABS: ALANINE AMINOTRANSFERASE 29 U/L (12-78); ALKALINE PHOSPHATASE 201 U/L (45-117); BILIRUBIN,TOTAL 0.4 mg/dL (0.2-1.0); CREATININE 1.25 mg/dL (0.7-1.3); TOTAL PROTEIN 7.6 g/dL (6.4-8.2)
[2021-04-04 20:16] LABS: MICROSCOPIC AUTO
--- NOTE | 2021-04-04 20:55 | NUR ---
PT C/O GENERALIZED ABDOMINAL PAIN STARTED LAST NIGHT. DENIES N/V/D. VSS, NADN.
--- NOTE | 2021-04-04 20:55 | NUR ---
business division chair: patient to room from lobby.
[2021-04-04] MEDS ORDERED: OMNIPAQUE 350 MG/ML, 100ML BOTTLE ONE (21:00)
[2021-04-04] MEDS ORDERED: ONDANSETRON 2MG/ML, 2ML ONE (21:19)
[2021-04-04] MEDS ORDERED: MORPHINE SULFATE 4 MG/ML, 1ML ONE (21:19)
--- NOTE | 2021-04-04 21:29 | NUR ---
PIV PLACED, MEDS GIVEN PER ORDER, PT TOLERATED WELL. PT TAKEN TO CT AT THIS TIME.
[2021-04-04] MEDS ORDERED: ONDANSETRON 2MG/ML, 2ML IVPush ONE (21:30)
[2021-04-04] MEDS ORDERED: MORPHINE SULFATE 4 MG/ML, 1ML IVPush PRN (21:30)
[2021-04-04] MEDS ORDERED: SODIUM CHLORIDE FLUSH 10ML SYR IVF ONE (21:30)
--- NOTE | 2021-04-04 21:43 | NUR ---
PT BACK FROM CT, VSS, NADN.
[2021-04-04 22:33] VITALS: BP 124/79
[2021-04-13] MEDS ORDERED: ALPR1TAB2 PO (10:30)
[2021-04-14] MEDS ORDERED: ALPR1TAB2 PO (12:17)
== END 2021-04-04 22:37 | disposition home or self-care (01) ==
LOC: ED 21:16
DX: K70.31 Alcoholic cirrhosis of liver with ascites (principal); K40.91 Unilateral inguinal hernia, without obstruction or gangrene, recurrent
CPT/HCPCS: 36415; 74177; 80053; 81001; 85025; 96374; 96375; 99285; J2270; J2405; Q9967

== ENCOUNTER 2021-04-19 21:49 | Emergency (ER) | payer MEDICAID ==
[~2021-04-19] VITALS: Ht 162.6 cm; Wt 60.0 kg
[~2021-04-19 21:49] MED LIST changes: +ALPR1TAB2 PO
--- NOTE | 2021-04-19 22:14 | NUR ---
BIBA FROM HOME FOR CHEST AND ABDOMINAL PAIN X 13 HOURS HX OF ABDOMINAL ASCITIS AND 5 HEART ATTACKS. PATIENT REPORTS "SXS TODAY NOT LIKE PRIOR MEDICAL HX BUT MAY BE SIMILIAR." VSS PLACED ON GLASS INSTALLER TECHNICIAN ECG OBTAINED PIV [facility] PLACE FROM [facility] PATIENT APPEARS WELL
[2021-04-19] MEDS ORDERED: ONDANSETRON 2MG/ML, 2ML ONE (22:22)
[2021-04-19] MEDS ORDERED: MORPHINE SULFATE 4 MG/ML, 1ML ONE (22:22)
[2021-04-19] MEDS: MORPHINE SULFATE 4 MG/ML, 1ML IVPush PRN (22:27)
[2021-04-19] MEDS ORDERED: ONDANSETRON 2MG/ML, 2ML IVPush ONE (22:30)
--- NOTE | 2021-04-19 23:04 | NUR ---
COVID SWAB OBTAINED PER GUIDELINES-WALKED TO LAB
--- NOTE | 2021-04-19 23:05 | NUR ---
PLACED ON DROPLET PLUS PRECAUTIONS
--- NOTE | 2021-04-19 23:12 | NUR ---
REPORT RECIEVED FROM JIA ATKINSON
--- NOTE | 2021-04-19 23:13 | NUR ---
REPORT TO DNAA ATKINSON
[2021-04-19 23:37] LABS: BASOPHILS % (AUTO) 1 % (0-1); EOSINOPHILS % (AUTO) 7 % (1-7); LYMPHOCYTES % (AUTO) 7 % (22-44); MEAN CORPUSCULAR HEMOGLOBIN 24.1 pg (27.5-34.5); MEAN CORPUSCULAR HGB CONC 32.2 g/dL (33.2-36.2); MEAN PLATELET VOLUME 8.5 fL (7.4-10.4); MONOCYTES % (AUTO) 11 % (2-9); NEUTROPHILS % (AUTO) 75 % (42-75); PLATELET COUNT 154 x10^3/uL (130-400); RED BLOOD COUNT 4.83 x10^6/uL (4.38-5.82); RED CELL DISTRIBUTION WIDTH 19.1 % (9.4-14.8)
[2021-04-19 23:50] LABS: ALANINE AMINOTRANSFERASE 32 U/L (12-78); ANION GAP 4 mmol/L (5-15); CALCIUM 8.6 mg/dL (8.5-10.1); CHLORIDE 109 mmol/L (98-107); CREATININE 1.83 mg/dL (0.7-1.3)
[2021-04-19 23:54] LABS: ALKALINE PHOSPHATASE 212 U/L (45-117); BILIRUBIN,TOTAL 0.4 mg/dL (0.2-1.0); TOTAL PROTEIN 9.1 g/dL (6.4-8.2); TROPONIN I < 0.015 ng/mL (0.000-0.045)
[2021-04-20] MEDS ORDERED: MORPHINE SULFATE 4 MG/ML, 1ML ONE (00:51)
[2021-04-20] MEDS: MORPHINE SULFATE 4 MG/ML, 1ML IVPush PRN (00:52)
[2021-04-20] MEDS ORDERED: SODIUM CHLORIDE 0.9% 1,000ML IVBOLUS ONE (01:00)
--- NOTE | 2021-04-20 01:10 | NUR ---
PT ASLEEP IN BED, ALL NEEDS IN REACH, CALL LIGHT IN REACH, NAD AT THIS TIME, VSS
[2021-04-20] MEDS ORDERED: morphine SULFATE 10 MG/ML, 1ML IVPush PRN (01:30)
[2021-04-20] MEDS ORDERED: SODIUM CHLORIDE 0.9% 1,000 ML IV ONE (01:30)
[2021-04-20] MEDS ORDERED: morphine SULFATE 10 MG/ML, 1ML IV PRN (01:30)
[2021-04-20] MEDS ORDERED: ONDANSETRON 2MG/ML, 2ML IVPush PRN ×2 (01:30)
[2021-04-20] MEDS ORDERED: SODIUM BICARBONATE 8.4% 100 MEQ in DEXTROSE 5% 1,000 ML IV SCH (01:30)
[2021-04-20] MEDS ORDERED: POLYETHYLENE GLYCOL 17 GM PACKET PO PRN (01:30)
[2021-04-20] MEDS ORDERED: LABETALOL 5MG/ML, 20ML IVPush PRN (01:30)
[2021-04-20] MEDS ORDERED: ACETAMINOPHEN 500 MG TABLET PO PRN (01:30)
[2021-04-20] MEDS ORDERED: OXYcodone IR 5MG TABLET PO PRN (01:30)
[2021-04-20] MEDS ORDERED: NITROGLYCERIN 0.4 MG/SPRAY SL PRN (01:30)
[2021-04-20] MEDS ORDERED: MORPHINE SULFATE 4 MG/ML, 1ML IVPush PRN (01:30)
[2021-04-20] MEDS ORDERED: GUAIFENESIN/DM 200-20MG, 10ML UDC PO PRN (01:30)
[2021-04-20] MEDS ORDERED: MELATONIN 5 MG TABLET PO PRN (01:30)
[2021-04-20] MEDS ORDERED: hydrOXyzine 10MG TABLET PO PRN (01:30)
[2021-04-20] MEDS ORDERED: BISACODYL 5 MG EC TABLET PO PRN (01:30)
[2021-04-20] MEDS ORDERED: GLUCAGON 1 MG IM PRN (02:00)
[2021-04-20] MEDS ORDERED: DEXTROSE 50%, 50ML SYRINGE IVPush PRN (02:00)
[2021-04-20] MEDS ORDERED: DEXTROSE 4 GM TAB.CHEW PO PRN (02:00)
[2021-04-20] MEDS ORDERED: INSULIN LISPRO 100 UNITS/ML, PEN SQ-INSULIN SCH (02:00)
[2021-04-20 02:30] LABS: CHOLESTEROL, TOTAL 123 mg/dL (140-239); TRIGLYCERIDES 29 mg/dL (50-200); VLDL CHOLESTEROL 6 mg/dL (0-25)
[2021-04-20 02:39] LABS: CHOL/HDL RATIO 1.8; HDL CHOL % 54 % (26-37); HDL CHOLESTEROL (DIRECT) 67 mg/dL (40-60); LDL CHOLESTEROL,CALCULATED 50 mg/dL (54-169); LDL/HDL RATIO 0.7 (0.5-3.0); TROPONIN I < 0.015 ng/mL (0.000-0.045)
--- NOTE | 2021-04-20 03:35 | NUR ---
PT ASLEEP IN BED, ALL NEEDS IN REACH, CALL LIGHT IN REACH, NAD AT THIS TIME, VSS
[2021-04-20 04:06] VITALS: BP 107/64
--- NOTE | 2021-04-20 04:45 | NUR ---
PT LAYING IN BED, A/OX3, ALL NEEDS IN REACH, CALL LIGHT IN REACH, NAD AT THIS TIME, VSS
--- NOTE | 2021-04-20 06:24 | NUR ---
REPORT GIVEN TO COLLETTE ATKINSON
--- NOTE | 2021-04-20 06:33 | NUR ---
REPORT REGIVEN TO DEMETRIO CORTEZ
--- NOTE | 2021-04-20 06:55 | NUR ---
REPORT RECEIVED, CARE ASSUMED
[2021-04-20] MEDS ORDERED: OMEPRAZOLE 20 MG CAPSULE.DR ONE (07:00)
--- NOTE | 2021-04-20 07:05 | NUR ---
CONTACT WITH PT. PT SITTING ON SIDE OF BED. PT UPSET "I WANT TO KNOW WHY I HAVENT GONE UP STAIRS YET AND WHY I'M STILL IN THIS ROOM. I DONT HAVE COVID AND YOU HAVE ME ON THE COVID GARIBAY. I HAVE BEEN PUSHING MY CALL LIGHT (BUTTON ON BED) AND NO ONE HAS COME. PEOPLE HAVE WALKED BY AND IGNORED ME. I'M HERE BECAUSE OF MY HEART AND MY STOMACH. I DONT HAVE COVID. I HAVE BEEN HERE MANY TIMES AND I PAY MY BILLS. I HAVE TRIPLE A INSURANCE" WHEN RN ATTEMPTS TO EXPLAIN TO PT WHY HE IS STILL HERE IN THE ED, PT INTERRUPTS RN AND RESTATES PRIOR COMMENTS. APOLOGIZED THAT HE HAD NOT BEEN INSTRUCTED ON USING THE CALL LIGHT ON THE TV CONTROL AND THAT HE IS NOT ON "A COVID UNIT" THAT HE IS STILL IN THIS ROOM BECAUSE OF NO AVAILABLE ROOMS UPSTAIRS AND THAT HE WAS PLACED IN THIS ROOM WHEN HE CAME TO THE ED. PT ACKNOWLEDGED THAT THIS WAS THE ORIGINAL ROOM HE WAS PLACED IN, CONT TO REPEAT PRIOR STATEMENTS AND "I WANT TO LEAVE" DISCUSSED AMA, "I'LL SIGN IT, I WANT TO LEAVE"
--- NOTE | 2021-04-20 07:10 | NUR ---
CALL TO DR ALBA, NOTIFIED, PT WANTING TO LEAVE AMA. NO NEW ORDERS.
--- NOTE | 2021-04-20 07:16 | NUR ---
PT SIGNED AMA FORM, IV DC'D WITH TIP INTACT. ENC PT TO SELF ISOLATE R/T COVID SWAB DONE, UNTIL RESULTS KNOWN. PT VERBALIZED UNDERSTANDING. DISCUSSED PT CAN ALWAYS RETURN IF HE FEELS HE NEEDS TO. PT LEFT AMB, GAIT STEADY.
[2021-04-20] MEDS ORDERED: OMEPRAZOLE 20 MG CAPSULE.DR PO SCH (07:30)
[2021-04-20] MEDS ORDERED: AMLODIPINE 10 MG TAB PO SCH (09:00)
[2021-04-20] MEDS ORDERED: SODIUM CHLORIDE FLUSH 10ML SYR IVF SCH ×2 (09:00)
[2021-04-20] MEDS ORDERED: SACUBITRIL/VALSARTAN 24MG-26MG TAB PO SCH (09:00)
[2021-04-20] MEDS ORDERED: SPIRONOLACTONE 25 MG TABLET PO SCH (09:00)
[2021-04-20] MEDS ORDERED: CLOPIDOGREL 75 MG TABLET PO SCH (09:00)
[2021-04-20] MEDS ORDERED: ASPIRIN 81 MG TABLET EC PO SCH (09:00)
[2021-04-20] MEDS ORDERED: ATORVASTATIN 80 MG TABLET PO SCH (21:00)
[2021-04-21] MEDS ORDERED: ASPIRIN 81 MG TABLET EC PO SCH (06:00)
== END 2021-04-20 07:35 | disposition left against medical advice (07) ==
LOC: ED 04-20 01:12 → INTOOBSV 04-20 01:13 → UNDOADMOB 04-20 01:13 → EDIP 04-20 01:13 → ED 04-20 07:35
DX: N28.9 Disorder of kidney and ureter, unspecified (principal); Z20.822 Contact with and (suspected) exposure to COVID-19; E87.5 Hyperkalemia; R10.13 Epigastric pain; R07.89 Other chest pain; R11.2 Nausea with vomiting, unspecified; E60 Dietary zinc deficiency
CPT/HCPCS: 36415; 71045; 80053; 80061; 82962; 83690; 84443; 84484; 85025; 93005; 96361; 96365; 96366; 96375; 96376; 99285; J2270; J2405; J7030; J7070; U0003; U0005; 96374

== ENCOUNTER 2021-04-22 09:17 | Emergency (ER) | payer MEDICAID ==
[~2021-04-22] VITALS: Ht 167.6 cm; Wt 60.0 kg
--- NOTE | 2021-04-22 09:30 | NUR ---
PT BIBA. PER EMS PT HAS HAD DIFFUSE ABD PAIN X1 DAY. PER PT HE HAD PARACENTESIS 2 WEEKS AGO, STATES HE FEELS THE SAME HE DID THEN. PT HAS HX OF CHF AND LIVER CA. PT RESTING IN GURNEY, MONITORING IN PLACE, RAFAEL LARSON AT BEDSIDE FOR EVAL, WARM BLANKETS PROVIDED, PT STATES NO OTHER NEEDS AT THIS TIME, WCTM.
[2021-04-22 10:26] LABS: BASOPHILS % (AUTO) 1 % (0-1); EOSINOPHILS % (AUTO) 9 % (1-7); LYMPHOCYTES % (AUTO) 6 % (22-44); MEAN CORPUSCULAR HEMOGLOBIN 23.8 pg (27.5-34.5); MEAN CORPUSCULAR HGB CONC 31.4 g/dL (33.2-36.2); MEAN PLATELET VOLUME 8.4 fL (7.4-10.4); MONOCYTES % (AUTO) 13 % (2-9); NEUTROPHILS % (AUTO) 71 % (42-75); PLATELET COUNT 99 x10^3/uL (130-400); RED BLOOD COUNT 4.64 x10^6/uL (4.38-5.82); RED CELL DISTRIBUTION WIDTH 19.1 % (9.4-14.8)
[2021-04-22 10:35] LABS: ALBUMIN 3.2 g/dL (3.4-5.0); ANION GAP 4 mmol/L (5-15); CALCIUM 8.1 mg/dL (8.5-10.1); CHLORIDE 111 mmol/L (98-107)
[2021-04-22 10:36] LABS: INTERNATIONAL NORMALIZED RATIO 1.13 (0.93-1.1)
[2021-04-22 10:39] LABS: ALANINE AMINOTRANSFERASE 30 U/L (12-78); ALKALINE PHOSPHATASE 203 U/L (45-117); BILIRUBIN,TOTAL 0.6 mg/dL (0.2-1.0); CREATININE 1.58 mg/dL (0.7-1.3); TOTAL PROTEIN 8.6 g/dL (6.4-8.2)
--- NOTE | 2021-04-22 10:58 | NUR ---
BLADDER SCAN RESULT WAS 159ML.
[2021-04-22 11:10] LABS: ANISOCYTOSIS 1+; HYPOCHROMIA 1+; MICROCYTOSIS 1+
[2021-04-22 11:11] LABS: <PLATELET ESTIMATE> DECREASED; OVALOCYTES 1+
[2021-04-22 11:12] LABS: LARGE PLATELETS 1+
[2021-04-22] MEDS ORDERED: ONDANSETRON 2MG/ML, 2ML ONE (11:53)
[2021-04-22] MEDS ORDERED: MORPHINE SULFATE 4 MG/ML, 1ML ONE (11:53)
[2021-04-22] MEDS ORDERED: MORPHINE SULFATE 4 MG/ML, 1ML IVPush PRN (12:00)
[2021-04-22] MEDS ORDERED: SODIUM CHLORIDE FLUSH 10ML SYR IVF ONE (12:00)
[2021-04-22] MEDS ORDERED: ONDANSETRON 2MG/ML, 2ML IVPush ONE (12:00)
[2021-04-22 12:03] VITALS: BP 124/73
[2021-04-22 12:33] LABS: MICROSCOPIC AUTO
== END 2021-04-22 13:04 | disposition home or self-care (01) ==
LOC: ED 11:36 → MERGE 11:36 → ED 13:04
DX: R10.84 Generalized abdominal pain (principal); D64.9 Anemia, unspecified; I12.9 Hypertensive chronic kidney disease with stage 1 through stage 4 chronic kidney disease, or unspecified chronic kidney disease; N18.9 Chronic kidney disease, unspecified; E87.1 Hypo-osmolality and hyponatremia; K56.0 Paralytic ileus; E78.5 Hyperlipidemia, unspecified; K21.9 Gastro-esophageal reflux disease without esophagitis; I25.2 Old myocardial infarction
CPT/HCPCS: 36415; 74021; 76700; 80053; 81001; 83690; 85025; 85610; 96374; 96375; 99285; J2270; J2405

== ENCOUNTER → 2021-04-27 | Outpatient (CLI) | payer MEDICAID | END | disposition home or self-care (01) | LOC: CFH 14:58 | PROVIDERS: ATTEND Physician Assistant | DX: C22.0 Liver cell carcinoma (principal); I81 Portal vein thrombosis; I85.00 Esophageal varices without bleeding; K74.69 Other cirrhosis of liver; R18.8 Other ascites; K82.0 Obstruction of gallbladder; K74.60 Unspecified cirrhosis of liver; R16.1 Splenomegaly, not elsewhere classified | CPT/HCPCS: 74183; A9581 ==